=== PATIENT | female | born 1935 | race Caucasian/White ===

== ENCOUNTER 2020-12-02 14:06 | Outpatient (CLI) | payer MEDICARE, OTHER, SELFPAY ==
--- NOTE | 2020-12-02 14:15 | USCV_ITS ---
Tatiana Recio Age: 85 Gender: F : 1935 Exam Date: 12/02/2020 14:24 Ordering Phys: Dory Herrmann Technologist: Monet Hernandez Exam Location: [facility] [place]_ Indication: BLE PAIN RIGHT LEFT Brachial 148.00 mmHg Brachial 149.00 mmHg Pressure (mmHg) Waveform Pressure (mmHg) Waveform High Thigh 178.00 71.00 CHILD ADVOCATE 205.00 175.00 DPA 178.00 1.17 Ankle/Brachial Index 1.38 120.00 Pre-Exercise Toe Pressure 131.00 0.81 Pre-Exercise Toe/Brachial Index 0.88 FINDINGS RIGHT THIGH PRESSURE= >200 RIGHT CALF PRESSURE= >220 LEFT CALF PRESSURE= >220 Normal resting ABIs bilaterally Normal resting TBIs bilaterally PVR waveforms showing some blunting of the dicrotic notch Markedly elevated segmental pressures CONCLUSIONS No significant arterial obstruction, based on the above findings Features of arterial sclerosis Dr Amy Hoskins MD FACC (Electronically Signed) Final Date: 04 December 2020 18:49 S
== END 2020-12-02 14:07 | disposition home or self-care (01) ==
LOC: US 14:09
PROVIDERS: PCP Family Medicine; Visit Provider Nurse Practitioner Family
DX: I73.9 Peripheral vascular disease, unspecified (principal); M79.605 Pain in left leg; M79.604 Pain in right leg
CPT/HCPCS: 93923

== ENCOUNTER 2023-04-08 15:39 | Outpatient (CLI) | payer MEDICARE, OTHER, SELFPAY ==
[2023-04-08 15:51] LABS: Basophils % 0.4 %; Eosinophils % 0.7 %; Lymphocytes # 0.9 10^3/uL (0.8-4.8); Lymphocytes % 18.9 %; Mean Corpuscular HGB Conc 29.3 g/dL (30.0-36.0); Mean Corpuscular Hemoglobin 24.5 pg (28.0-34.0); Mean Corpuscular Volume 83.5 fl (81-99); Mean Platelet Volume 10.2 fL (7.4-10.4); Monocytes # 0.6 10^3/uL (0.2-0.9); Monocytes % 13.3 %; Neutrophils # 2.99 10^3/uL (1.8-7.7); Neutrophils % 66.5 %; Nucleated Red Blood Cells % 0 %; Platelet Count 430 10^3/cmm (130-400); Red Blood Count 2.49 10^6/uL (4.1-5.3); Red Cell Distribution Width 15.8 % (12.1-15.1); White Blood Count 4.5 10^3/uL (4.0-10.0)
[2023-04-08 15:56] LABS: Hematocrit 20.8 % (37.0-47.0); Hemoglobin 6.1 g/dL (11.5-15.3)
== END 2023-04-08 15:40 | disposition home or self-care (01) ==
LOC: LAB 15:40
PROVIDERS: PCP Family Medicine; Visit Provider Nurse Practitioner Family
DX: D50.9 Iron deficiency anemia, unspecified (principal)
CPT/HCPCS: 85025

== ENCOUNTER 2023-04-08 16:58 | Inpatient (IN) | payer MEDICARE, OTHER, SELFPAY ==
[2023-04-08] VITALS (12 sets, daily range): BP systolic 132–163; BP diastolic 64–78; PULSE 68–75; RESP 16–18; TEMP 36.6–37; O2SAT 93–100; BMI 17.1
--- NOTE | 2023-04-08 17:15 | W.ED.RECABL ---
HPI - Recheck/Abnormal Lab/Rx General: Chief Complaint: Recheck/Abnormal Lab/Rx Stated Complaint: anemia Time Seen by Provider: 04/08/23 17:15 History of Present Illness: 88-year-old lady with reported history of chronic anemia intermittent throughout her life presented to the emergency department for abnormal labs. Hemoglobin 6.1. She has noticed increased fatigue and generalized weakness without focality. 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 Denies other sources of bleeding. She is on anticoagulation. No other specific changes in health, exacerbating, or alleviating factors identified. Review of Systems General: Reports: 10 or more systems reviewed and unremarkable except in HPI and below PFSH ED PFSH: Medical History Atrial fibrillation CHF (congestive heart failure) HTN (hypertension) Family History Mother Heart disease Social History Smoking and tobacco status: never smoked Physical Exam Const: COMMON NORMALS: alert GENERAL APPEARANCE: cooperative and well developed HENMT: COMMON NORMALS: normocephalic and atraumatic HEAD & SCALP: normocephalic and atraumatic Eye: COMMON NORMALS: conjunctivae normal CONJUNCTIVA: Yes conjunctivae normal SCLERA: sclerae normal Neck/C-Spine: COMMON NORMALS: supple GENERAL: Yes trachea midline Resp: COMMON NORMALS: normal respiratory effort EFFORT & INSPECTION: Yes able to speak in complete sentences Cardio: COMMON NORMALS: regular rate and regular rhythm RATE: regular rate RHYTHM: regular rhythm GI: COMMON NORMALS: Soft to palpation PALPATION: Yes Soft to palpation and No Tenderness to palpation present (GI) RECTAL EXAM: heme negative stool and hemorrhoids Extremity: GENERAL: Yes normal exam except as noted and No edema Neuro: COMMON NORMALS: moves all extremities SENSORIUM/ORIENTATION: Yes alert and No Orientation impaired Psych: COMMON NORMALS: mental status grossly normal and Normal thought process present THOUGHT PROCESS: Normal thought process present Course Vital Signs: Vital signs: Vital Signs Temperature 98.0 F 04/10/23 11:23 Pulse Rate 67 04/10/23 11:23 Respiratory Rate 16 04/10/23 11:23 Blood Pressure 167/79 04/10/23 11:23 Pulse Oximetry 97 04/10/23 11:23 Oxygen Delivery Me thod Room Air 04/10/23 07:22 MDM - Recheck/Abnormal Lab/Rx Medical Decision Making 88-year-old lady presenting with generalized symptoms and abnormal labs. Exam as above. Vitally satisfactory. Labs notable for anemia, normal white blood cell count, mild thrombocytosis. Elevated creatinine without reported history of CKD. Trace hematuria. Normal renal ultrasound. Guaiac negative. Consented for transfusion and transfusion ordered. Additionally treated small fluid bolus. The results of ED evaluation were discussed with the patient including plan for admission due to requirement for level of care not available if discharged to prevent significant worsening/deterioration. Patient agreeable with plan. Discussed with hospitalist service who was agreeable to admit patient. Medical Records I reviewed the patient's medical records. Lab Data I reviewed the patient's lab results. 04/10/23 04:30 04/10/23 04:30 Radiology Impressions Renal Ultrasound 04/08/23 19:11 IMPRESSION: 1. No acute findings. 2. Postvoid urinary bladder residual of 67 cc. Laboratory Results WBC 4.1 10^3/uL (4.0-10.0) 04/08/23 17:50 RBC 2.65 10^6/uL (4.1-5.3) L 04/08/23 17:50 Hgb 6.5 g/dL (11.5-15.3) L* 04/08/23 17:50 Hct 22.4 % (37.0-47.0) L 04/08/23 17:50 MCV 84.5 fl (81-99) 04/08/23 17:50 MCH 24.5 pg (28.0-34.0) L 04/08/23 17:50 MCHC 29.0 g/dL (30.0-36.0) L 04/08/23 17:50 RDW 15.9 % (12.1-15.1) H 04/08/23 17:50 Plt Count 417 10^3/cmm (130-400) H 04/08/23 17:50 MPV 9.8 fL (7.4-10.4) 04/08/23 17:50 Neut % (Auto) 68.3 % 04/08/23 17:50 Lymph % (Auto) 18.7 % 04/08/23 17:50 White % (Auto) 11.8 % 04/08/23 17:50 Eos % (Auto) 0.5 % 04/08/23 17:50 Baso % (Auto) 0.5 % 04/08/23 17:50 Neut # (Auto) 2.78 10^3/uL (1.8-7.7) 04/08/23 17:50 Lymph # (Auto) 0.8 10^3/uL (0.8-4.8) 04/08/23 17:50 White # (Auto) 0.5 10^3/uL (0.2-0.9) 04/08/23 17:50 Eos # (Auto) 0.0 10^3/uL (0.0-0.8) 04/08/23 17:50 Baso # (Auto) 0.0 10^3/uL (0.0-0.1) 04/08/23 17:50 Nucleated RBC % (auto) 0 % 04/08/23 17:50 Nucleated RBCs # 0.0 /100WBC 04/08/23 17:50 PT 26.00 SECONDS (12.1-14.9) H 04/08/23 17:50 INR 2.28 (0.8-1.2) H 04/08/23 17:50 APTT 40.0 SECONDS (23.9-36.7) H 04/08/23 17:50 Sodium 139 mmol/L (136-145) 04/08/23 17:50 Potassium 4.5 mmol/L (3.5-5.1) 04/08/23 17:50 Chloride 101 mmol/L (98-107) 04/08/23 17:50 Carbon Dioxide 26 mmol/L (22-29) 04/08/23 17:50 Anion Gap 16.5 (5-19) 04/08/23 17:50 BUN 41 mg/dL (8-23) H 04/08/23 17:50 Creatinine 1.8 mg/dL (0.5-0.9) H 04/08/23 17:50 GFR Calculation Not Reportable 04/08/23 17:50 Glucose 98 mg/dL (65-115) 04/08/23 17:50 Calculated Osmolality 298 mOsm/kg (285-295) H 04/08/23 17:50 Calcium 9.1 mg/dL (8.5-10.5) 04/08/23 17:50 Urine Color Yellow (Yellow) 04/08/23 19:04 Urine Appearance Clear (CLEAR) 04/08/23 19:04 Urine pH 6 (5-7) 04/08/23 19:04 Ur Specific [place] 1.010 (1.005-1.030) 04/08/23 19:04 Urine Protein Neg (Negative) 04/08/23 19:04 Urine Glucose (UA) Norm (Normal) 04/08/23 19:04 Urine Ketones Negative (Negative) 04/08/23 19:04 Urine Blood 2+ (Negative) H 04/08/23 19:04 Urine Nitrate Negative (Negative) 04/08/23 19:04 Urine Bilirubin Neg (Negative) 04/08/23 19:04 Urine Urobilinogen Norm mg/dL (Negative) 04/08/23 19:04 Ur Leukocyte Esterase Negative (Negative) 04/08/23 19:04 Urine RBC 5-10 /hpf (0-2) H 04/08/23 19:04 Urine WBC 0-4 /hpf (0-5) H 04/08/23 19:04 Ur Squamous Epith Cells 0-4 /hpf (0-5) H 04/08/23 19:04 Amorphous Sediment Not Reportable 04/08/23 19:04 Urine Bacteria Not Reportable 04/08/23 19:04 Blood Type O Positive 04/08/23 17:50 Rho(D) Type Positive 04/08/23 17:50 Antibody Screen Negative 04/08/23 17:50 Crossmatch See Detail 04/08/23 17:50 Discharge Plan Discharge Patient Disposition: Admitted As Inpatient Admit Provider: Viridiana Rueda Clinical Impression: Symptomatic anemia, VICKI (acute kidney injury), Anticoagulated Condition: Stable Discharge Diet: Usual diet Discharge Activity: Resume usual activity Coding Level of Care Code 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
[2023-04-08 18:15] LABS: Basophils % 0.5 %; Eosinophils % 0.5 %; Hematocrit 22.4 % (37.0-47.0); Lymphocytes # 0.8 10^3/uL (0.8-4.8); Lymphocytes % 18.7 %; Mean Corpuscular Hemoglobin 24.5 pg (28.0-34.0); Mean Corpuscular Volume 84.5 fl (81-99); Mean Platelet Volume 9.8 fL (7.4-10.4); Monocytes # 0.5 10^3/uL (0.2-0.9); Monocytes % 11.8 %; Neutrophils # 2.78 10^3/uL (1.8-7.7); Neutrophils % 68.3 %; Nucleated Red Blood Cells % 0 %; Platelet Count 417 10^3/cmm (130-400); Red Blood Count 2.65 10^6/uL (4.1-5.3); Red Cell Distribution Width 15.9 % (12.1-15.1); White Blood Count 4.1 10^3/uL (4.0-10.0)
[2023-04-08 18:17] LABS: Hemoglobin 6.5 g/dL (11.5-15.3)
[2023-04-08 18:26] LABS: INR 2.28 (0.8-1.2)
[2023-04-08 18:34] LABS: Anion Gap 16.5 (5-19); Blood Urea Nitrogen 41 mg/dL (8-23); Calcium 9.1 mg/dL (8.5-10.5); Carbon Dioxide 26 mmol/L (22-29); Chloride 101 mmol/L (98-107); Glucose 98 mg/dL (65-115); Osmolality Calculated 298 mOsm/kg (285-295); Potassium 4.5 mmol/L (3.5-5.1); Sodium 139 mmol/L (136-145)
--- NOTE | 2023-04-08 19:11 | USR_ITS ---
PROCEDURE INFORMATION: Exam: US Retroperitoneal; Complete; Kidneys and Bladder Exam date and time: 04/08/2023 7:24 PM Age: 88 years old Clinical indication: Patient HX: Chronic anemia, elevated bun = 41, elevated creatinine = 1.8 TECHNIQUE: Imaging protocol: Real-time ultrasound of the retroperitoneum with image documentation. Complete exam focused on the kidneys and bladder. COMPARISON: No relevant prior studies available. FINDINGS: Right kidney: 10.1 x 4.1 x 4.4 cm. No mass, cyst, calculus, or hydronephrosis Left kidney: 9.5 x 3.6 x 3.9 cm. No mass, cyst, calculus, or hydronephrosis. Urinary bladder: The urinary bladder is of normal size and contour. Prevoid volume 125 cc. Postvoid volume 67 cc. US/US renal BI* [id number] IMPRESSION: 1. No acute findings. 2. Postvoid urinary bladder residual of 67 cc.
[2023-04-08 19:44] LABS: Add Urine Microscopic? YES; Bilirubin Urine Neg (Negative); Blood Urine 2+ (Negative); Glucose Urine UA Norm (Normal); Ketones Urine Negative (Negative); Leukocyte Esterase Urine Negative (Negative); Nitrate Urine Negative (Negative); Protein Urine Neg (Negative); Urine Appearance Clear (CLEAR); Urine Color Yellow (Yellow); Urobilinogen Urine Norm (Negative); pH Urine 6 (5-7)
[2023-04-08 19:45] LABS: Add Urine Culture? No; Squamous Epithelial Cell Urine 0-4 /hpf (0-5); WBC Urine 0-4 /hpf (0-5)
--- NOTE | 2023-04-08 19:50 | PC.NURSE ---
Ultrasound in room
--- NOTE | 2023-04-08 21:49 | ECG_ITS ---
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 Measurements Intervals [place] Rate: 68 P: 42 TN: 172 QRS: 39 QRSD: 98 T: 32 QT: 400 QTc: 428 Interpretive Statements SINUS RHYTHM LOW QRS VOLTAGE IN EXTREMITY LEADS [QRS DEFLECTION < 0.5 mV IN LIMB LEADS] ST DEVIATION AND MODERATE T-WAVE ABNORMALITY, CONSIDER LATERAL ISCHEMIA [-0.1+ mV T-WAVE IN I/aVL/V5/V6] Compared to ECG 03/23/2018 09:56:23 Low QRS voltage now present T-wave abnormality still present Possible ischemia still present Electronically Signed On 04-09-2023 8:43:25 CDT by Parviz Barrow M.D. [id number]
--- NOTE | 2023-04-08 21:52 | PM.HP ---
Providers/Chief Complaint Admitting Physician: Viridiana Rueda MD Chief Complaint: anemia History of Present Illness Tatiana Recio is a 88 year old female with h/o HTN, atrial fibrillation on eliquis, OA, was sent from the assisted living for abnormal labs, She was found to have a hemoglobin of 6.5. She reports feeling tired but no new complaints likje chest pain, SOB, cough, fever, bowel or urinary complaints. As per the family, her usual hemoglobin is around 10. never had similar complaints in the past. She further reports having diarrhea 1day prior to admission which resolved with antidiarrheal medication. No h/o active bleeding noted. In ER she was hemoccult negative. Review of Systems Const: Reports: fatigue; Denies: fever(s), chills, change in weight or diaphoresis Eyes: Denies: change in vision or eye redness ENMT: Denies: throat pain, odynophagia, mouth pain or epistaxis Card: Reports: other (elevated BP); Denies: chest pain, palpitations, irregular heart rhythm, syncope, pre-syncope or leg pain with exertion Resp: Denies: dyspnea, productive cough or wheezing GI: Denies: nausea, vomiting, hematemesis, hematochezia or melena : Denies: hematuria Musc: Denies: extremity swelling or joint pain Skin/Breast: Reports: non-healing lesions; Denies: rash, pruritus, erythema or new lesions Neuro: Reports: dizziness; Denies: numbness in extremities, weakness in extremities, sensory changes, frequent falls, Slurred speech present or difficulty communicating thoughts Psych: Denies: anxiety, depression, irritability, suicidal ideation or homicidal ideation Endo: Denies: polyuria, polydipsia or excessive sweating [place]/Lymph: Denies: easy bruising or easy bleeding Medications/Allergies Home Medications Medication Instructions Recorded Confirmed Last Taken Type acetaminophen 650 mg 650 mg PO Q12H PRN fever or pain 02/16/20 12/19/20 Unknown Rx tablet,extended release (Tylenol 8 30 days #30 tabs Hour) apixaban 2.5 mg tablet (Eliquis) 2.5 mg PO BID 90 days #180 tabs 02/16/20 12/19/20 Unknown Rx ergocalciferol (vitamin D2) 1,250 50,000 unit PO DAILY 30 days #30 02/16/20 12/19/20 Unknown Rx mcg (50,000 unit) capsule caps fluticasone propionate 50 1 spray intranasal DAILY 30 days 02/16/20 12/19/20 Unknown Rx mcg/actuation nasal #18.2 mL spray,suspension (Flonase Allergy Relief) isosorbide mononitrate 20 mg tablet 20 mg PO DAILY 90 days #90 tabs 02/16/20 12/19/20 Unknown Rx levothyroxine 112 mcg capsule 112 mcg PO DAILY 30 days #30 caps 02/16/20 12/19/20 Unknown Rx lorazepam 0.5 mg tablet 0.5 mg PO DAILY PRN anxiety 30 02/16/20 12/19/20 Unknown Rx days #30 tabs pantoprazole 40 mg tablet,delayed 40 mg PO DAILY 90 days #90 tabs 02/16/20 12/19/20 Unknown Rx release (Protonix) tramadol 50 mg tablet 50 mg PO DAILY PRN pain 30 days 02/16/20 12/19/20 Unknown Rx #30 tabs furosemide 40 mg tablet 40 mg PO DAILY #90 tabs 12/24/20 12/24/20 Unknown Rx metoprolol tartrate 25 mg tablet 12.5 mg PO DAILY #45 tabs 07/28/21 Unknown Rx amiodarone 200 mg tablet 200 mg PO DAILY #90 tabs 11/19/21 Unknown Rx losartan 100 1 tab PO DAILY #90 tabs 11/19/21 Unknown Rx mg-hydrochlorothiazide 12.5 mg tablet amlodipine 5 mg tablet 5 mg PO .HS #30 tabs 01/05/22 Unknown Rx potassium chloride 20 mEq 20 meq PO DAILY #30 tabs 01/26/22 Unknown Rx tablet,extended release Allergies Allergy/AdvReac Type Severity Reaction Status Date / Time No Known Allergies Allergy Verified 04/08/23 17:13 PFSH Acute PFSH: Medical History Atrial fibrillation CHF (congestive heart failure) HTN (hypertension) Family History Mother Heart disease Social History Smoking and tobacco status: never smoked Vitals/I&O/Wt Last Vital Signs Temp 98.4 F 04/08/23 21:33 Pulse 72 04/08/23 21:33 Resp 16 04/08/23 21:33 BP 138/69 04/08/23 21:33 Pulse Ox 93 04/08/23 21:33 O2 Del Method Room Air 04/08/23 21:02 04/08/23 04/08/23 04/08/23 06:59 14:59 22:59 Intake Total 0 / 0 Balance 0 / 0 Weight last 48 hrs Weight 48.081 kg Physical Exam Narrative: AAox3, comfortable but tired. chest clear to ascultation b/l CVS NAD Abd soft NTND bowel sounds normal Ext no edema Data 04/08/23 17:50 04/08/23 17:50 US: Radiologist's impression: renal USG-normal A&P Assessment and plan (1) Symptomatic anemia: (2) VICKI (acute kidney injury): (3) Anticoagulated: Plan Symptomatic anemiawith Hb 6.5 likely iron deficiency patient to receive 2u PRBC recheck CBC in am will start PO ferrous sulphate 325mg daily. VICKI- likely secondary to dehydration due to diarrhea which resolved. will give IV flids normal saline at 100ml/hr. Hold Po lasix for now. repeat UA stat. Coagulopathy-- unknown etiology. recheck coags in am Resume home medications DVT ppx with eliquis cardiac diet Full code. Attestations Medical Necessity Statement*: need blood transfusion for severe anemia and IV flyids for VICKI Time Spent in Patient Care: 30min Coding Level of Care Code 97248 Diagnoses Symptomatic anemia D64.9 VICKI (acute kidney injury) N17.9 Anticoagulated Z79.01 Time Spent (min) 30
[2023-04-08] MEDS: TRAMadol 50 mg Tablet PO (22:51)
[2023-04-08] MEDS: amlodipine 5 mg Tablet PO (22:52)
[2023-04-08 23:25] LABS: Charge for UA Resulting for Rev
[2023-04-08 23:33] LABS: Glucose Urine UA Norm (Normal); Ketones Urine Negative (Negative); Protein Urine Neg (Negative); Urine Appearance Clear (CLEAR); Urine Color Yellow (Yellow); pH Urine 8 (5-7)
[2023-04-08 23:34] LABS: Add Urine Microscopic? YES; Bilirubin Urine Neg (Negative); Blood Urine Trace (Negative); Leukocyte Esterase Urine Negative (Negative); Nitrate Urine Negative (Negative); Sulfosalicylic Acid Urine Negative (Negative); Urobilinogen Urine Neg (Negative)
[2023-04-09] VITALS (13 sets, daily range): BP systolic 106–149; BP diastolic 54–73; PULSE 60–76; RESP 16–18; TEMP 36.5–37; O2SAT 94–98
[2023-04-09] MEDS: acetaminophen 325 mg Tablet 650 MG PO (02:20)
[2023-04-09] MEDS: LORazepam 0.5 mg Tablet PO (02:21)
[2023-04-09] MEDS: sodium chloride 0.9% 1,000 ML 75 ML IV (02:32)
[2023-04-09 05:06] LABS: Basophils % 0.3 %; Eosinophils % 1.1 %; Hemoglobin 8.7 g/dL (11.5-15.3); Lymphocytes # 0.7 10^3/uL (0.8-4.8); Lymphocytes % 20.7 %; Mean Corpuscular Hemoglobin 25.3 pg (28.0-34.0); Mean Corpuscular Volume 84.3 fl (81-99); Mean Platelet Volume 10.1 fL (7.4-10.4); Monocytes # 0.4 10^3/uL (0.2-0.9); Monocytes % 10.1 %; Neutrophils # 2.41 10^3/uL (1.8-7.7); Neutrophils % 67.5 %; Nucleated Red Blood Cells % 0 %; Platelet Count 367 10^3/cmm (130-400); Red Blood Count 3.44 10^6/uL (4.1-5.3); Red Cell Distribution Width 14.9 % (12.1-15.1); White Blood Count 3.6 10^3/uL (4.0-10.0)
[2023-04-09 05:18] LABS: INR 1.33 (0.8-1.2)
[2023-04-09 05:26] LABS: Alanine Aminotransferase < 5 U/L (0-33); Albumin Level 3.6 g/dL (3.5-5.2); Alkaline Phosphatase 99 U/L (35-105); Anion Gap 15.7 (5-19); Aspartate Amino Transferase 16 U/L (0-32); Blood Urea Nitrogen 33 mg/dL (8-23); Calcium 9.5 mg/dL (8.5-10.5); Carbon Dioxide 24 mmol/L (22-29); Chloride 100 mmol/L (98-107); Globulin 2.7 g/dL (1.3-4.6); Glucose 78 mg/dL (65-115); Osmolality Calculated 288 mOsm/kg (285-295); Potassium 3.7 mmol/L (3.5-5.1); Sodium 136 mmol/L (136-145); Total Bilirubin 1.2 mg/dL (0.15-1.2); Total Protein 6.3 g/dL (6.6-8.7)
[2023-04-09] MEDS: levothyroxine 112 mcg Tablet PO (08:29)
[2023-04-09] MEDS: isosorbide mononitrate 20 mg Tablet PO (08:29)
[2023-04-09] MEDS: potassium chloride ER 20 mEq Tablet PO (08:29)
[2023-04-09] MEDS: amiodarone 200 mg Tablet PO (08:29)
[2023-04-09] MEDS: apixaban 5 mg Tablet 2.5 MG PO (08:30)
[2023-04-09] MEDS: hydroCHLOROthiazide 25 mg Tablet 12.5 MG PO (08:30)
[2023-04-09] MEDS: metoprolol tartrate 25 mg Tablet 12.5 MG PO (08:30)
[2023-04-09] MEDS: pantoprazole DR 40 mg Tablet PO (08:30)
[2023-04-09] MEDS: fluticasone nasal spray 16gm Btl 1 SPRAY INTRANASAL (08:32)
[2023-04-09] MEDS: losartan 50 mg Tablet 100 MG PO (08:41)
--- NOTE | 2023-04-09 09:47 | PC.PHAR ---
CALLED PTS FACILITY AT 8 AM AND 9:15 AM FOR MED LIST NO RESPONSE YET
--- NOTE | 2023-04-09 10:35 | P.PN_ITS ---
Subjective Subjective: Posttransfusion hemoglobin at 8.7. Patient complains of some nausea. No other interim complaints. She states that she believes her Eliquis was recently changed to a different medication due to cost issues. This is confirmed with assisted-living records, she is in fact on Xarelto,. Her CODE STATUS is also DNR Medications: Reviewed: Yes Medication Review Details: Medication list from [facility] Albuterol inhaler as needed Amiodarone 100 mg p.o. every morning Amlodipine 5 mg daily Cetirizine 5 mg p.o. daily Isosorbide dinitrate 30 mg in the afternoon Lasix 20 mg p.o. once daily for edema Levothyroxine 112 mcg daily Lorazepam 0.5 mg as needed at bedtime Losartan/HCTZ/5012.51 tab daily MiraLAX every 12 hours as needed Naproxen every 12 hours as needed Protonix 40 mg p.o. daily Potassium 10 mEq 2 tabs a day Tramadol 50 mg as needed at bedtime and every 8 hours as needed Xarelto 10 mg daily Zofran 4 mg every 8 hours as needed Vitals/I&O/Wt Last Vital Signs Temp 98.2 F 04/09/23 08:00 Pulse 66 04/09/23 08:00 Resp 17 04/09/23 08:00 BP 134/65 04/09/23 08:41 Pulse Ox 95 04/09/23 08:00 O2 Del Method Room Air 04/08/23 23:59 04/08/23 04/09/23 04/09/23 22:59 06:59 14:59 Intake Total 0 / 0 870 / 870 838.75 / 838.75 Balance 0 / 0 870 / 870 838.75 / 838.75 Weight last 48 hrs Weight 48.081 kg Physical Exam Narrative: General: No acute distress, AO x3 HEENT: PERRLA, pupils bilaterally equal and reactive, pallors not present Chest: Normal vesicular breath sounds, no added sounds, equal good air entry bilaterally CVS: S1-S2 regular, no murmurs, no tachycardia, no gallops, no rubs Abdomen: Soft, nontender, no organomegaly, bowel sounds present Neuro: No focal deficits, no facial deformity, AO x3, power 5/5 in all limbs Extremities: Severe right knee osteoarthritis with swelling. Data 04/09/23 04:13 06/16/23 04:13 A&P Assessment and plan (1) Symptomatic anemia: Patient presenting to the hospital with symptomatic anemia as low as 6.5. She is status post packed red blood cell transfusion following which hemoglobin this morning is improved to 8.7. Patient reports having had a colonoscopy within the last 3 years which was normal. I am unable to find a direct record of this colonoscopy at this point. She denies any recent hematemesis or melanotic stools. Patient is currently on Xarelto for stroke prophylaxis with A-fib. We will be discontinuing all anticoagulation going forward. We will plan to monitor her H&H again in the evening hours to ensure that it is a stable. Recommend to get a colonoscopy as an outpatient if H&H remained stable. Defer decision to resume anticoagulation post colonoscopy to her primary care physician. Review of her medication list from [facility] shows patient is also on naproxen for osteoarthritis pain management. Will discontinue naproxen in case contributing to gastritis or GI bleeding. Okay to continue tramadol for pain management. (2) VICKI (acute kidney injury): Creatinine is improving today from 1.8-1.3 Discontinue IV fluids Encourage p.o. intake. Hold Lasix and losartan (3) CHF (congestive heart failure): History of CHF Holding Lasix currently. Additionally hold losartan for now due to VICKI Qualifiers: Heart failure type: diastolic Heart failure chronicity: chronic Qualified Code(s): I50.32 - Chronic diastolic (congestive) heart failure (4) HTN (hypertension): Continue amlodipine, Imdur (5) Atrial fibrillation: Continue amiodarone Patient is currently rate controlled. Discontinue Xarelto as above Qualifiers: Atrial fibrillation type: persistent (not longstanding) Qualified Code(s): I48.19 - Other persistent atrial fibrillation Attestations Medical Necessity Statement*: Recheck H&H in 12 hours and then again with a.m. labs. If stable, will likely discharge patient in the upcoming 24 hours with recommendations for outpatient colonoscopy. Coding Level of Care Code Acute Code for Chg Fwd Moderate MDM includes number and complexity of problems actively addressed during encounter, amount and/or complexity of data reviewed/ordered and described risk of complication, morbidity or mortality of management as documented Diagnoses Symptomatic anemia D64.9 VICKI (acute kidney injury) N17.9 CHF (congestive heart failure) I50.32 Heart failure type: diastolic Heart failure chronicity: chronic HTN (hypertension) I10 Atrial fibrillation I48.19 Atrial fibrillation type: persistent (not longstanding)
[2023-04-09 10:46] LABS: Ferritin 27 ng/mL (15-150); Iron 85 ug/dL (37-145); Percent Saturation 28.1 % (20-50); Total Iron Binding Capacity 302 mcg/dl; Unsaturated Iron Binding 217 ug/dL (112-347)
[2023-04-09 11:01] LABS: Folate Level 12.5 ng/mL (4.8-37.3)
[2023-04-09 11:02] LABS: Vitamin B12 313 pg/mL (232-1245)
[2023-04-09 17:30] LABS: Hematocrit 29.6 % (37.0-47.0); Hemoglobin 8.8 g/dL (11.5-15.3)
[2023-04-09] MEDS: TRAMadol 50 mg Tablet PO (19:52)
[2023-04-09] MEDS: amlodipine 5 mg Tablet PO (20:11)
[2023-04-10] VITALS: BP 130/60; PULSE 60; RESP 18; TEMP 37; O2SAT 95
[2023-04-10] MEDS: acetaminophen 325 mg Tablet 650 MG PO (01:13)
[2023-04-10] MEDS: LORazepam 0.5 mg Tablet PO (01:13)
[2023-04-10 04:50] VITALS: BP 120/60; PULSE 62; RESP 19; TEMP 37.1; O2SAT 96
[2023-04-10 05:16] LABS: Basophils % 0.5 %; Eosinophils # 0.1 10^3/uL (0.0-0.8); Eosinophils % 1.1 %; Hematocrit 32.5 % (37.0-47.0); Hemoglobin 9.9 g/dL (11.5-15.3); Lymphocytes # 0.9 10^3/uL (0.8-4.8); Lymphocytes % 20.7 %; Mean Corpuscular HGB Conc 30.5 g/dL (30.0-36.0); Mean Corpuscular Hemoglobin 26.1 pg (28.0-34.0); Mean Corpuscular Volume 85.5 fl (81-99); Mean Platelet Volume 9.7 fL (7.4-10.4); Monocytes # 0.5 10^3/uL (0.2-0.9); Monocytes % 11.4 %; Neutrophils % 65.8 %; Nucleated Red Blood Cells % 0 %; Platelet Count 385 10^3/cmm (130-400); Red Cell Distribution Width 15.5 % (12.1-15.1); White Blood Count 4.4 10^3/uL (4.0-10.0)
[2023-04-10 05:35] LABS: Alanine Aminotransferase 6 U/L (0-33); Albumin Level 3.4 g/dL (3.5-5.2); Alkaline Phosphatase 104 U/L (35-105); Anion Gap 17.6 (5-19); Aspartate Amino Transferase 16 U/L (0-32); Blood Urea Nitrogen 20 mg/dL (8-23); Calcium 9.7 mg/dL (8.5-10.5); Carbon Dioxide 21 mmol/L (22-29); Chloride 101 mmol/L (98-107); Globulin 2.9 g/dL (1.3-4.6); Glucose 82 mg/dL (65-115); Osmolality Calculated 284 mOsm/kg (285-295); Potassium 3.6 mmol/L (3.5-5.1); Sodium 136 mmol/L (136-145); Total Bilirubin 0.8 mg/dL (0.15-1.2); Total Protein 6.3 g/dL (6.6-8.7)
[2023-04-10 07:22] VITALS: BP 167/79; PULSE 67; RESP 16; TEMP 36.7; O2SAT 97
--- NOTE | 2023-04-10 07:34 | PC.PHAR ---
Addendum entered by Jeannette Benjamin 04/10/23 08:11: medications entered are from pts [facility] mar faxed by maryjo zhong from [facility] Original Note: pt is from [facility] [phone]-per maryjo to fax med list
[2023-04-10] MEDS: hydroCHLOROthiazide 25 mg Tablet 12.5 MG PO (08:30)
[2023-04-10] MEDS: amiodarone 200 mg Tablet 100 MG PO (08:30)
[2023-04-10] MEDS: levothyroxine 112 mcg Tablet PO (08:30)
[2023-04-10] MEDS: isosorbide mononitrate 20 mg Tablet PO (08:30)
[2023-04-10] MEDS: pantoprazole DR 40 mg Tablet PO (08:30)
[2023-04-10] MEDS: potassium chloride ER 20 mEq Tablet PO (08:31)
--- NOTE | 2023-04-10 09:56 | P.DS_ITS ---
Discharge Providers Date of Admission: 04/08/23 19:30 Date of Discharge: April 10, 2023 Attending Provider at Admission: Viridiana Rueda MD Attending Provider at Discharge: Maryann Villegas MD Diagnoses at Discharge Discharge Diagnosis (1) Symptomatic anemia: Status: Acute (2) VICKI (acute kidney injury): Status: Acute (3) CHF (congestive heart failure): Status: Acute Qualifiers: Heart failure type: diastolic Heart failure chronicity: chronic Qualified Code(s): I50.32 - Chronic diastolic (congestive) heart failure (4) HTN (hypertension): Status: Acute (5) Atrial fibrillation: Status: Acute Qualifiers: Atrial fibrillation type: persistent (not longstanding) Qualified Code(s): I48.19 - Other persistent atrial fibrillation Reason for Visit Reason for Visit: anemia Brief History: Tatiana Recio is a 88 year old female with h/o HTN, atrial fibrillation on Xarelto, OA, lives in assisted living, She had been experiencing generalized fatigue and malaise, labs were checked and she was noted to have a hemoglobin of 6.5. She reports feeling tired but no new complaints likje chest pain, SOB, cough, fever, bowel or urinary complaints. No abdominal pain. As per the family, her usual hemoglobin is around 10. never had similar complaints in the past. She further reports having diarrhea 1day prior to admission which resolved with antidiarrheal medication. There was no melena or hematemesis. In ER she was hemoccult negative. She received transfusion with 1 packed red blood cell following which her hemoglobin has improved to 9.9 at the time of discharge. She has no current active bleeding. Due to symptomatic anemia at 6.5, Xarelto was held. An extensive risk-benefit assessment was performed with the family. While off of anticoagulation there is a potential risk of stroke with her A-fib, given anemia at 6.5 and the possibility of GI bleed not completely excluded it would be unsafe to continue anticoagulation at this time. 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 Patient also had an VICKI of 1.8 of admission at admission, creatinine now improved to 0.9 with hydration at the time of discharge. Losartan has been held at the time of discharge and Norvasc increased to 10 mg daily from 5 mg daily currently. Physical Exam Narrative: General: No acute distress, AO x3 HEENT: PERRLA, pupils bilaterally equal and reactive, pallors not present Chest: Normal vesicular breath sounds, no added sounds, equal good air entry bilaterally CVS: S1-S2 regular, no murmurs, no tachycardia, no gallops, no rubs Abdomen: Soft, nontender, no organomegaly, bowel sounds present Neuro: No focal deficits, no facial deformity, AO x3, power 5/5 in all limbs Discharge Data Studies Completed and Pending Completed Studies During Hospitalization Category Date Time Status US renal BI* [id number] Stat Ultrasound 04/08/23 19:11 Completed Pending at discharge Category Date Time Status Occult Blood Stool [Immunochemical Fecal OCB] Stat Lab 04/08/23 19:17 Uncollected Radiology Impressions Renal Ultrasound 04/08/23 19:11 IMPRESSION: 1. No acute findings. 2. Postvoid urinary bladder residual of 67 cc. Laboratory Results WBC 4.4 10^3/uL (4.0-10.0) 04/10/23 04:30 RBC 3.80 10^6/uL (4.1-5.3) L 04/10/23 04:30 Hgb 9.9 g/dL (11.5-15.3) L 04/10/23 04:30 Hct 32.5 % (37.0-47.0) L 04/10/23 04:30 MCV 85.5 fl (81-99) 04/10/23 04:30 MCH 26.1 pg (28.0-34.0) L 04/10/23 04:30 MCHC 30.5 g/dL (30.0-36.0) 04/10/23 04:30 RDW 15.5 % (12.1-15.1) H 04/10/23 04:30 Plt Count 385 10^3/cmm (130-400) 04/10/23 04:30 MPV 9.7 fL (7.4-10.4) 04/10/23 04:30 Neut % (Auto) 65.8 % 04/10/23 04:30 Lymph % (Auto) 20.7 % 04/10/23 04:30 [place] % (Auto) 11.4 % 04/10/23 04:30 Eos % (Auto) 1.1 % 04/10/23 04:30 Baso % (Auto) 0.5 % 04/10/23 04:30 Neut # (Auto) 2.90 10^3/uL (1.8-7.7) 04/10/23 04:30 Lymph # (Auto) 0.9 10^3/uL (0.8-4.8) 04/10/23 04:30 [place] # (Auto) 0.5 10^3/uL (0.2-0.9) 04/10/23 04:30 Eos # (Auto) 0.1 10^3/uL (0.0-0.8) 04/10/23 04:30 Baso # (Auto) 0.0 10^3/uL (0.0-0.1) 04/10/23 04:30 Nucleated RBC % (auto) 0 % 04/10/23 04:30 Nucleated RBCs # 0.0 /100WBC 04/10/23 04:30 PT 17.00 SECONDS (12.1-14.9) H D 04/09/23 04:13 INR 1.33 (0.8-1.2) H 04/09/23 04:13 APTT 38.0 SECONDS (23.9-36.7) H 04/09/23 04:13 Sodium 136 mmol/L (136-145) 04/10/23 04:30 Potassium 3.6 mmol/L (3.5-5.1) 04/10/23 04:30 Chloride 101 mmol/L (98-107) 04/10/23 04:30 Carbon Dioxide 21 mmol/L (22-29) L 04/10/23 04:30 Anion Gap 17.6 (5-19) 04/10/23 04:30 BUN 20 mg/dL (8-23) 04/10/23 04:30 Creatinine 0.9 mg/dL (0.5-0.9) 04/10/23 04:30 GFR Calculation Not Reportable 04/10/23 04:30 Glucose 82 mg/dL (65-115) 04/10/23 04:30 Calculated Osmolality 284 mOsm/kg (285-295) L 04/10/23 04:30 Calcium 9.7 mg/dL (8.5-10.5) 04/10/23 04:30 Magnesium 2.0 mg/dL (1.7-2.3) 04/09/23 04:13 Iron 85 ug/dL (37-145) 04/09/23 04:13 TIBC 302 mcg/dl 04/09/23 04:13 % Saturation 28.1 % (20-50) 04/09/23 04:13 Unsat Iron Binding 217 ug/dL (112-347) 04/09/23 04:13 Ferritin 27 ng/mL (15-150) 04/09/23 04:13 Total Bilirubin 0.8 mg/dL (0.15-1.2) 04/10/23 04:30 AST 16 U/L (0-32) 04/10/23 04:30 ALT 6 U/L (0-33) 04/10/23 04:30 Alkaline Phosphatase 104 U/L (35-105) 04/10/23 04:30 Total Protein 6.3 g/dL (6.6-8.7) L 04/10/23 04:30 Albumin 3.4 g/dL (3.5-5.2) L 04/10/23 04:30 Globulin 2.9 g/dL (1.3-4.6) 04/10/23 04:30 Vitamin B12 313 pg/mL (232-1245) 04/09/23 04:13 Folate 12.5 ng/mL (4.8-37.3) 04/09/23 04:13 Urine Color Yellow (Yellow) 04/08/23 22:55 Urine Appearance Clear (CLEAR) 04/08/23 22:55 Urine pH 8 (5-7) H 04/08/23 22:55 Ur Specific [place] 1.010 (1.005-1.030) 04/08/23 22:55 Urine Protein Neg (Negative) 04/08/23 22:55 Urine Glucose (UA) Norm (Normal) 04/08/23 22:55 Urine Ketones Negative (Negative) 04/08/23 22:55 Urine Blood Trace (Negative) H 04/08/23 22:55 Urine Nitrate Negative (Negative) 04/08/23 22:55 Urine Bilirubin Neg (Negative) 04/08/23 22:55 Prot Sulfosalicylic Acd Negative (Negative) 04/08/23 22:55 Urine Urobilinogen Neg mg/dL (Negative) 04/08/23 22:55 Ur Leukocyte Esterase Negative (Negative) 04/08/23 22:55 Urine RBC 5-10 /hpf (0-2) H 04/08/23 19:04 Urine WBC 0-4 /hpf (0-5) H 04/08/23 19:04 Ur Squamous Epith Cells 0-4 /hpf (0-5) H 04/08/23 19:04 Amorphous Sediment Not Reportable 04/08/23 19:04 Urine Bacteria Not Reportable 04/08/23 19:04 Blood Type O Positive 04/08/23 17:50 Rho(D) Type Positive 04/08/23 17:50 Antibody Screen Negative 04/08/23 17:50 Crossmatch See Detail 04/08/23 17:50 Vitals Last Vital Signs Temp 98.0 F 04/10/23 07:22 Pulse 67 04/10/23 07:22 Resp 16 04/10/23 07:22 BP 167/79 04/10/23 07:22 Pulse Ox 97 04/10/23 07:22 O2 Del Method Room Air 04/10/23 07:22 Discharge Plan Discharge Patient Disposition: Home Condition: Stable Prescriptions: Continued pantoprazole [Protonix] 40 mg tablet,delayed release (DR/EC) 40 mg PO DAILY 90 Days Qty: 90 3RF cetirizine 5 mg Tablet 5 mg PO DAILY potassium chloride 10 mEq tablet extended release 20 meq PO DAILY isosorbide dinitrate 30 mg tablet 30 mg PO .IN THE AFTERNOON furosemide 20 mg tablet 20 mg PO DAILY amiodarone 100 mg tablet 100 mg PO QAM ondansetron HCl 4 mg tablet 4 mg PO Q8H PRN (Reason: Nausea And Vomiting) tramadol 50 mg tablet 50 mg PO Q8H PRN (Reason: Pain) albuterol sulfate 90 mcg/actuation Aero Powdr Breath Act W/Sensor 2 inh INHALATION Q6H PRN (Reason: Shortness Of Breath Or Wheezing) Miralax 17 gram Powder In Packet 17 g PO Q12H PRN (Reason: Constipation) tramadol 50 mg tablet 50 mg PO BEDTIME lorazepam 0.5 mg tablet 0.5 mg PO BEDTIME Flonase 50 mcg/actuation [place],Suspension 2 spray INTRANASAL DAILY Rx Instructions: administer into each nostril levothyroxine 112 mcg tablet 112 mcg PO QAM Changed amlodipine 5 mg tablet 10 mg PO BEDTIME Qty: 30 0RF Rx Instructions: hold if sbp below 100 or dbp below 60 Discontinued Xarelto 10 mg tablet 10 mg PO QAM naproxen sodium 220 mg Tablet 220 mg PO Q12H PRN (Reason: Pain) losartan-hydrochlorothiazide 50-12.5 mg tablet 1 tab PO QAM Discharge Orders: Discharge Order (Routine); Ordered 04/10/23 Ordered By: Maryann Villegas Discharge Diet: Usual diet Discharge Activity: Resume usual activity Patient Instructions: Opioid Safety Discharge Attestations Time Spent in Discharge Care*: greater than 30 min Quality Metrics Clinical Quality Measures [ No reported AMI, CVA or VTE this stay] Coding Level of Care Code Acute Code for Chg Fwd Diagnoses Symptomatic anemia D64.9 VICKI (acute kidney injury) N17.9 CHF (congestive heart failure) I50.32 Heart failure type: diastolic Heart failure chronicity: chronic HTN (hypertension) I10 Atrial fibrillation I48.19 Atrial fibrillation type: persistent (not longstanding)
[2023-04-10 11:23] VITALS: BP 167/79; PULSE 67; RESP 16; TEMP 36.7; O2SAT 97
--- NOTE | 2023-04-10 11:24 | PC.NURSE ---
IV removed intact. Patient tolerated well. Reviewed patient's discharge instructions with patient and daughter. Patient and daughter verbalized understanding to the call she will receive from Dr. Duran office and to hold her amlodipine for a top blood pressure of less than a 100 or a bottom blood pressure of less then 60. Patient states, I live at senior housing and they take care of all my medications. Instructed patient's daughter to give the discharge papers to the nurses where she lives. Patient and daughter verbalized understanding.
== END 2023-04-10 11:20 | disposition home or self-care (01) | DRG 812 ==
LOC: ER 19:29 → MEDSURG 20:03
PROVIDERS: Admitting Provider Internal Medicine; Emergency Provider Emergency Medicine; Visit Provider Student in an Organized Health Care Education/Training Program
DX: D50.9 Iron deficiency anemia, unspecified (principal); I48.19 Other persistent atrial fibrillation; I50.32 Chronic diastolic (congestive) heart failure; N17.9 Acute kidney failure, unspecified; D68.9 Coagulation defect, unspecified; Z79.01 Long term (current) use of anticoagulants; I11.0 Hypertensive heart disease with heart failure; M19.90 Unspecified osteoarthritis, unspecified site; Z66 Do not resuscitate; E86.0 Dehydration
CPT/HCPCS: 36415; 36430; 76770; 80048; 80053; 81001; 81003; 82607; 82728; 82746; 83540; 83550; 83735; 85014; 85018; 85025; 85610; 85730; 86850; 86900; 86920; 93005; 99222; 99285; J7030; P9016

== ENCOUNTER → 2023-08-12 10:29 | Outpatient (BNVA) | payer MEDICARE, OTHER, SELFPAY | PROVIDERS: Visit Provider Nurse Practitioner | DX: M17.11 Unilateral primary osteoarthritis, right knee; G89.29 Other chronic pain; M25.561 Pain in right knee | CPT/HCPCS: 73562; 80053; 81001; 85025; 99204 ==

== ENCOUNTER → 2023-09-01 10:48 | Outpatient (BNVA) | payer MEDICARE, OTHER, SELFPAY | PROVIDERS: Visit Provider Family Medicine | DX: Z01.818 Encounter for other preprocedural examination (principal); R30.0 Dysuria | CPT/HCPCS: 81000; 87086 ==

== ENCOUNTER 2023-09-02 15:40 | Outpatient (CLI) | payer MEDICARE, OTHER, SELFPAY ==
--- NOTE | 2023-09-02 16:00 | CT_ITS ---
WS: [id number] CT RIGHT knee, noncontrast HISTORY: Planning for RT TKA TECHNIQUE: Protocol for ADAM total knee replacement has been obtained. This includes axial imaging th rough the RIGHT hip, RIGHT knee and RIGHT ankle. DLP: 981.01 mGy.cm COMPARISON: 08/12/2023 Pelvis: Osteopenia. Narrowing of the hip joint and osteophytic ridging. Hip joints are both narrowed. More significant osteophytic ridging around the RIGHT hip. Constipation RIGHT knee: No destructive bone lesions. Mild subluxation laterally of the patella. Advanced degenera tive changes at the medial and lateral joint spaces. Subchondral cystic changes and loss of the eduardo l cortex. Small suprapatellar joint effusion. Arterial atherosclerosis. RIGHT ankle: Negative. IMPRESSION: CT imaging provided for ADAM robotic total knee replacement.
== END 2023-09-02 15:41 | disposition home or self-care (01) ==
LOC: RAD 15:40
PROVIDERS: Visit Provider Nurse Practitioner
DX: M17.11 Unilateral primary osteoarthritis, right knee (principal); G89.29 Other chronic pain
CPT/HCPCS: 73700

== ENCOUNTER 2023-09-14 11:23 | Inpatient (IN) | payer MEDICARE, OTHER, SELFPAY ==
[2023-09-14] VITALS (16 sets, daily range): BP systolic 104–158; BP diastolic 62–102; PULSE 57–76; RESP 15–18; TEMP 36.1–37.1; O2SAT 93–97; BMI 15.5
[2023-09-14] MEDS: acetaminophen 1,000 MG/100 ML PIGGYBACK 400 MG IV ×2 (06:29→16:30)
[2023-09-14] MEDS: CELEcoxib 200 mg Capsule 400 MG PO (06:29)
[2023-09-14] MEDS: gabapentin 300 mg Capsule PO (06:29)
[2023-09-14] MEDS: sodium chloride 0.9% 1,000 ML 30 ML IV (06:44)
--- NOTE | 2023-09-14 06:58 | P.HPUD_ITS ---
Surgery/Procedure H&P Update DATE OF PROCEDURE: September 14, 2023 DATE H&P PERFORMED: 08/31/23 H&P UPDATE INFORMATION: I have reviewed H&P completed within last 30 days, I have examined patient prior to procedure, No changes to prior documentation and H&P is in [facility] [place] on date indicated PREOP DIAGNOSIS: Primary osteoarthritis right knee PLANNED PROCEDURE: Operation Date: 09/14/23 07:00 Proposed Procedures p David Robot Total Knee Arthroplasty(Right) - Laura Harper MD Related Problem List Diagnoses (1) Osteoarthritis of right knee: (2) Valgus deformity, not elsewhere classified, right knee:
[2023-09-14 06:59] LABS: Basophils % 0.5 %; Eosinophils # 0.1 10^3/uL (0.0-0.8); Eosinophils % 0.8 %; Hematocrit 32.2 % (36-47); Lymphocytes # 1.1 10^3/uL (0.8-4.8); Lymphocytes % 17.3 %; Mean Corpuscular HGB Conc 31.7 g/dL (30-55); Mean Corpuscular Hemoglobin 29.6 pg (27-33); Mean Corpuscular Volume 93.3 fl (85-98); Mean Platelet Volume 9.4 fL (7.4-10.4); Monocytes # 0.6 10^3/uL (0.2-0.9); Monocytes % 9.1 %; Neutrophils # 4.74 10^3/uL (1.8-7.7); Neutrophils % 71.8 %; Nucleated Red Blood Cells % 0 %; Platelet Count 309 10^3/cmm (157-399); Red Blood Count 3.45 10^6/uL (3.85-5.65); Red Cell Distribution Width 16.9 % (12.1-15.1); White Blood Count 6.59 10^3/uL (3.29-11.43)
[2023-09-14] MEDS: ceFAZolin 2,000 MG in sodium chloride 0.9% (plus) 50 ML 100 MG IV ×3 (07:06→22:38)
[2023-09-14 07:11] LABS: Alanine Aminotransferase 8 U/L (0-33); Albumin Level 3.8 g/dL (3.5-5.2); Alkaline Phosphatase 88 U/L (35-105); Anion Gap 14.8 (5-19); Aspartate Amino Transferase 16 U/L (0-32); Blood Urea Nitrogen 18 mg/dL (8-23); Calcium 9.3 mg/dL (8.5-10.5); Carbon Dioxide 20 mmol/L (22-29); Chloride 105 mmol/L (98-107); Globulin 2.7 g/dL (1.3-4.6); Glucose 81 mg/dL (65-115); Osmolality Calculated 283 mOsm/kg (285-295); Potassium 3.8 mmol/L (3.5-5.1); Sodium 136 mmol/L (136-145); Total Bilirubin 0.8 mg/dL (0.15-1.2); Total Protein 6.5 g/dL (6.6-8.7)
[2023-09-14] MEDS: tranexamic acid 1,000 MG/100 ML PREMIX 600 MG IV ×2 (07:40→16:02)
--- NOTE | 2023-09-14 07:49 | ANES.PREANE2 ---
Pre-Anesthetic Assessment Height/Weight: Height 1.68 m Weight 40.823 kg Temp Pulse Resp BP Pulse Ox O2 Del Method 97 F L 76 18 151/102 97 Room Air 09/14/23 05:56 09/14/23 05:56 09/14/23 05:56 09/14/23 05:56 09/14/23 05:56 09/14/23 06:24 Preop Diagnosis: Primary osteoarthritis right knee Operation Date: 09/14/23 07:00 Proposed Procedures p David Robot Total Knee Arthroplasty(Right) - Laura Harper MD Familial anesthetic complications: none Was Beta Lydia taken within 24 hours: N/A Was Clonidine taken within 24 hours: N/A Last intake: Intake Last Liquid Date 09/13/23 Last Liquid Time 19:00 Last Solid Date 09/13/23 Last Solid Time 19:00 Social No alcohol and No tobacco Exam alert, oriented x 3 and clear to auscultation bilaterally Airway Submandibular: within normal limits Cervical ROM: within normal limits Mallampati: Class II Dentition: false CV/HEM Atrial Fibrillation, Anemia and Hypertension Chronic Renal Insufficiency GI Gastroesophageal Reflux Disease Metabolic Thyroid Disease [facility] [place] Osteoarthritis/DJD Anesthetic Plan ASA status: 3 Anesthesia: Regional (specify below) (SAB with adductor blk) Medications/Allergies Home Medications Medication Instructions Recorded Confirmed Last Taken Type pantoprazole 40 mg tablet,delayed 40 mg PO DAILY 90 days #90 tabs 02/16/20 09/13/23 09/13/23 Rx release (Protonix) ondansetron HCl 4 mg tablet 4 mg PO Q8H PRN Nausea And Vomiting 04/09/23 09/13/23 Unknown History potassium chloride 10 mEq 20 meq PO DAILY 04/09/23 09/14/23 09/13/23 History tablet,extended release tramadol 50 mg tablet 50 mg PO Q8H PRN Pain 04/09/23 09/13/23 09/13/23 History lorazepam 0.5 mg tablet 0.5 mg PO BEDTIME 04/10/23 09/13/23 09/13/23 History multivitamin 1 tab PO DAILY #90 tabs 04/10/23 09/13/23 09/13/23 Rx polyethylene glycol 3350 17 gram 17 g PO Q12H PRN Constipation 04/10/23 09/13/23 09/12/23 History oral powder packet (Miralax) diclofenac sodium 1 % topical gel 2 g topical QID 08/12/23 09/13/23 09/13/23 History (Voltaren Arthritis Pain) meloxicam 7.5 mg tablet 7.5 mg PO DAILY #60 tabs 08/12/23 09/13/23 09/01/23 Rx albuterol sulfate 90 mcg/actuation 2 puff inhalation Q6H PRN Allergy 09/01/23 09/14/23 Unknown History aerosol inhaler Symptoms amiodarone 100 mg tablet 100 mg PO DAILY 09/01/23 09/14/23 09/13/23 History amlodipine 5 mg tablet 5 mg PO DAILY 09/01/23 09/14/23 09/14/23 History cetirizine 5 mg tablet 5 mg PO DAILY PRN Allergy Symptoms 09/01/23 09/13/23 Unknown History docusate sodium 100 mg capsule 100 mg PO DAILY 09/01/23 09/13/23 09/11/23 History ferrous sulfate 325 mg (65 mg 325 mg PO DAILY 09/01/23 09/13/23 09/12/23 History iron) tablet,delayed release fluticasone propionate 50 1 spray intranasal DAILY 09/01/23 09/13/23 Unknown History mcg/actuation nasal spray,suspension furosemide 20 mg tablet 20 mg PO DAILY 09/01/23 09/13/23 09/13/23 History isosorbide dinitrate 30 mg tablet 30 mg PO DAILY 09/01/23 09/14/23 09/13/23 History levothyroxine 112 mcg capsule 112 mcg PO DAILY 09/01/23 09/13/23 09/13/23 History megestrol 400 mg/10 mL (10 mL) 400 mg PO DAILY 09/01/23 09/13/23 09/10/23 History oral suspension Allergies Allergy/AdvReac Type Severity Reaction Status Date / Time No Known Allergies Allergy Verified 09/14/23 06:05 Current Medications Generic Name Dose Route Start Last Admin Trade Name Freq PRN Reason Stop Dose Admin Sodium Chloride 1,000 mls @ 30 mls/hr 09/14/23 06:00 09/14/23 06:44 Sodium Chloride 0.9% IV 09/15/23 05:59 30 mls/hr .Q24H SUMI Administration PFSH Anesthesia Medical History Atrial fibrillation CHF (congestive heart failure) HTN (hypertension) Family History Mother Heart disease Social History Smoking and tobacco/nicotine status: never used tobacco/nicotine Data Anesthesia 09/14/23 06:41 09/14/23 06:41 Short CBC 09/14/23 Range/Units 06:41 WBC 6.59 (3.29-11.43) 10^3/uL Hgb 10.20 L (11.27-16.99) g/dL Hct 32.2 L (36-47) % MCV 93.3 (85-98) fl Plt Count 309 (157-399) 10^3/cmm Neut % (Auto) 71.8 % Neut # (Auto) 4.74 (1.8-7.7) 10^3/uL BMP 09/14/23 06:41 Sodium 136 Potassium 3.8 Chloride 105 Carbon Dioxide 20 L BUN 18 Creatinine 0.9 Glucose 81 Calcium 9.3 Liver Function 09/14/23 Range/Units 06:41 Total Bilirubin 0.8 (0.15-1.2) mg/dL AST 16 (0-32) U/L ALT 8 (0-33) U/L Alkaline Phosphatase 88 (35-105) U/L Albumin 3.8 (3.5-5.2) g/dL Blood Bank 09/14/23 06:41 Blood Type O Positive Rho(D) Type Rh positive Antibody Screen Positive Cardiac Studies: No Data to Display Anesthesia Procedures Nerve Block Nerve Block 1: Main Anesthesia: spinal anesthesia block Time Out Performed: Yes Consent: requested by attending/covering physician, from patient, risks and benefits reviewed and patient agrees to proceed Nerve block location: adductor canal (right) Anesthesia monitors applied: pulse oximetry, EKG, BP cuff and oxygen Nerve block position: supine Anesthetic Used: ropivicaine 0.5% Amount of anesthesia used (mL): 20 Ultrasound used to: recognize landmarks Nerve Stimulator Used?: No Interscalene/Femoral BLK: 4 stimuplex 21 g needle used for position and inplane approach Injection: neg aspiration of heme Patient Tolerated Procedure: well Complications: none
[2023-09-14] MEDS: ceFAZolin 1,000 mg SDV 1000 MG (08:00)
[2023-09-14] MEDS: vancomycin 1,000 MG SDV 1000 MG XX (08:29)
[2023-09-14] MEDS: BUPivacaine liposome 13.3 mg/mL SDV 10 mL 266 MG INFILTRATI (08:41)
[2023-09-14] MEDS: BUPivacaine 0.5% INJ 30 mL (08:41)
[2023-09-14] MEDS: ceFAZolin 1,000 mg SDV 3000 MG IRRIGATION (09:16)
--- NOTE | 2023-09-14 11:17 | XRR_ITS ---
PROCEDURE INFORMATION: Exam: XR Right Knee Exam date and time: 09/14/2023 12:30 PM Age: 88 years old Clinical indication: Device placement; Joint replacement hardware; Prior surgery; Surgery date: Post-operative (0-2 days); Surgery type: Post op RT knee; Additional info: Post operative XR in pacu post right tka. TECHNIQUE: Imaging protocol: Radiologic exam of the right knee. Views: 1 or 2 views. COMPARISON: CT knee RT wo con* [id number] 09/02/2023 3:57 PM FINDINGS: Bones/joints: Anterior skin bonnie. Total-knee replacement. Anatomic alignment. Intra-articular gas. No acute osseous or joint abnormality. Soft tissues: Normal. XR/XR knee RT 1-2V [id number] IMPRESSION: Normal immediate postoperative findings.
--- NOTE | 2023-09-14 11:18 | PM.OP ---
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 Procedure done: Cemented right total knee arthroplasty with David guidance Implants: The Lauren total knee system with a size 4 triathlon cruciate retaining femur right, a triathlon universal tibial component size?3 cemented, a triathlon X3 tibial bearing CS insert size 3 X 10 mm and a beaded triathlon titanium asymmetric patella size 32 x 10 mm Specimens removed/disposition: Bone, disposed of Surgeon: Laura Harper MD Crystal Calibrator: Martha Rutherford NP, who services were required for positioning, retraction, placement of the prosthesis, and intraoperative assistance Anesthesia: Spinal (With supplemental adductor block, ASA 3) Estimated blood loss (mL): 50 Tourniquet time (min): 0 (Not utilized) IV fluids (mL): 1,000 Urine output (mL): 400 Complications: None Findings: Severe degenerative osteoarthritic changes with fixed valgus deformity and flexion contracture Condition: stable Disposition: PACU (Then return to floor for postoperative rehabilitation and pain management) Brief History: This 88-year-old woman presenting to the office for evaluation of right knee pain and presents today for right total knee arthroplasty with David guidance. She has fixed flexion and valgus deformities secondary to longstanding osteoarthritis of the right knee. She has had right knee pain for years but in the past year and a half she has noticed pain getting worse. She had been to an Orthopedic office in [id number] where they recommended she have a TKA. She declined at the time due to her 's declining health. They then offered her injections without having to do surgery. The two injections lasted for about 3 weeks of relief. She has tried PT in the facility she lives in, but this did not provide any improvement. At the facility, she will use a walker, but when she initially presented to our orthopedic clinic, she was in a wheelchair due to severe pain, weakness, and difficulty with range of motion. She notes a history of falls due to dizziness. She is unable to bear weight on the RLE due to severe knee pain. After discussion in the clinic, the patient wished to proceed with total knee arthroplasty. Risks and complications were discussed with her. Consents were signed in the clinic as well. The patient presented with her daughter who was present for signing of the consents and agrees with the surgical procedure. Procedure: The patient was brought to the operating theater, and she was administered a spinal anesthetic, ASA 3, with supplemental adductor block.? The right lower extremity was prepped with Dura-Prep and draped in usual fashion following placement of a tourniquet high on the leg. The leg was then draped free.? Tourniquet was not elevated during the case.? A surgical pause was performed, and at the time of the surgical pause, we confirmed the site and side of surgery. Additionally, we confirmed the appropriate and timely administration of preoperative antibiotics, Ancef 2 g and Transexemic acid 1 g.? The availability of equipment was confirmed, and the patient's identity was verbalized as well.? An additional transexemic acid 1 g will be given on the floor as well. Following the surgical pause, an incision was made centering over the patella continuing proximally and distally as necessary to allow access to the knee joint. Dissection continued through skin and soft tissues using a scalpel. Hemostasis was obtained using electrocautery. The skin incision was followed by a median parapatellar arthrotomy. The leg was extended, and the patella was able to be displaced laterally without difficulty.? Medial release was initially accomplished to allow placement for the David array.? Appropriate arrays and markers were placed in appropriate position for use of the David.? Preoperative planning had been accomplished and was discussed in detail with the [facility] technical sales representative.? Intraoperative mapping of the femur and tibia was accomplished after the arrays were placed.? Internal markers were also placed.? Once we had accomplished the David mapping, we began the appropriate resections for placement of the prosthesis.? The plan was for a cruciate retaining right total knee arthroplasty.? Medial releases were accomplished prior to the surgical procedure to allow balancing of the knee. Once appropriate mapping had been accomplished retraction was established using manual retraction by surgical technicians and also the [facility] leg positioner and retractors.? The knee was evaluated.? There was significant osteoarthritic change.? The tibia was cut first with the David, and this was sized to a size 3 for the initial tibial cut.? Subsequently, appropriate bone resection of the femur was accomplished using the David.? The femur was sized to a size 4.? Osteophytes were removed prior to this portion of the procedure.? We had performed a medial release at the beginning of the procedure to allow for placement of the array and to allow for better planning with flexion and extension adjustments per David programming.? Following this resection, it was felt that appropriate size for the tibia was a size 3.? Tray was noted to fit nicely with good coverage.? Rim fit was accomplished with the size 3. A trial reduction was accomplished after osteophytes have been removed as well as the medial and lateral menisci.? We had removed the anterior cruciate ligament at the beginning of the case and preserved the posterior cruciate ligament.? Trial reduction was accomplished with a size 4 femoral posterior cruciate retaining component and a size 3 tibial tray with a size 3 x?9 CS tibial bearing insert.? With this combo, in spite of posterior release, there was still a flexion contracture. The patient was stable in flexion and not overly tight, however. For this reason, additional femoral resection was accomplished. We resected 2 more millimeters of the femur distally and adjusted chamfer cuts appropriately. Once again trial reduction was accomplished with the above components. With this combination, alignment was felt to be appropriate, and flexion contracture was significantly reduced. Further resection and correction of valgus and flexion was not felt to be appropriate due to potential soft tissue injury.? Subsequently, we trialed with a 10mm tibial insert.? The patella was noted to track nicely.? Decision was made to increase the final component to a 10 mm tibial insert CS.? Trial components were removed after the femur had been drilled.? Prior to removal of the tibial tray which had been pinned in position with appropriate rotation as determined by the David plan, we drilled and broached the tibia.? The decision was made for cemented components secondary to the patient's severe osteopenia from not walking for 2 years.? All trial components were removed, and the wound was irrigated.? Plans were made for insertion of the prosthetic components.? Prior to this, the patella was manually prepared.? After resection of the articular surface with the patellar sneed, it was measured and measured a 32 mm patella.? We resected approximately 8 mm of patella.? Patellar height was restored with the patellar component. Once again, the wound was irrigated.? Surfaces were dried. In preparation was made for cementing. The cement was mixed. We cemented the tibia followed by the femur followed by the patella clearing cement from each component as it was impacted into position. Tibial insert was placed without difficulty. The CS tibial insert was placed prior to placement of the femoral component. The patella was held in position with a patellar clamp.? Exparel was injected about the components deep and superficially.? The knee was then copiously irrigated with betadine and saline and suctioned dry.? Further irrigation was accomplished with saline following the Betadine.? Attention was then directed to closure. Closure was accomplished with 0 Vicryl and strata fix starting proximally and overlap with a strata fix starting distally in the fascial tissues.? This was followed by Surgiflo and vancomycin powder.? Following this, a 2-0 Monocryl was used in the subcutaneous tissues, and the skin was closed with skin bonnie.? Care was taken to assure an excellent subcutaneous as well as skin closure.? A sterile dressing was then placed consisting of Dermabond Prineo, OpSite, sterile soft roll, and an Kyle wrap including over the foot. The patient was returned the Recovery Room in a satisfactory condition. X-rays were obtained and reviewed there.? The patient will be discharged to the floor for postoperative rehabilitation and pain management. Related Problem List Diagnoses (1) Osteoarthritis of right knee: (2) Valgus deformity, not elsewhere classified, right knee:
[2023-09-14] MEDS: oxyCODONE 5 mg IR Tab/Cap PO ×2 (12:41→22:29)
[2023-09-14] MEDS: chlorhexidine gluconate 0.12% Btl 473 mL 30 ML MUCOUS MEM ×3 (12:42→20:01)
--- NOTE | 2023-09-14 13:42 | ANE.PACU2 ---
Inpatient post-anesthesia follow up: Airway intact: Yes Vital signs: Temperature 98.0 F Pulse Rate 68 Respiratory Rate 16 Blood Pressure 142/74 Pulse Oximetry 97 Oxygen Delivery Me thod Room Air Oxygen Flow Rate Fraction of Inspir ed Oxygen Hydration adequate: Yes Nausea and vomiting: No Pain level: 1 Mental status: Baseline
[2023-09-14] MEDS: TRAMadol 50 mg Tablet PO (14:24)
[2023-09-14] MEDS: ondansetron 2 mg/ML SDV 2 mL 4 MG IVP (16:41)
[2023-09-14] MEDS: iron polysaccharide complex 150 mg Capsule PO (17:24)
[2023-09-14] MEDS: mupirocin oint 22 gm 1 APPLIC NASAL (17:24)
[2023-09-14] MEDS: aspirin 325 mg EC Tablet PO (17:24)
[2023-09-14] MEDS: sennosides-docusate Tablet 2 TAB PO (17:25)
[2023-09-14] MEDS: cetirizine 10 mg Tablet 5 MG PO (17:25)
[2023-09-14] MEDS: CELEcoxib 200 mg Capsule PO (17:40)
[2023-09-14] MEDS: LORazepam 0.5 mg Tablet PO (20:00)
[2023-09-15] VITALS (13 sets, daily range): BP systolic 76–127; BP diastolic 44–83; PULSE 91–108; RESP 16–20; TEMP 36.9–37.2; O2SAT 94–97
[2023-09-15] MEDS: acetaminophen 1,000 MG/100 ML PIGGYBACK 400 MG IV ×2 (00:38→08:07)
[2023-09-15] MEDS: ceFAZolin 2,000 MG in sodium chloride 0.9% (plus) 50 ML 100 MG IV (06:02)
[2023-09-15] MEDS: CELEcoxib 200 mg Capsule PO ×2 (06:02→17:29)
[2023-09-15 06:22] LABS: Basophils % 0.4 %; Eosinophils % 0.5 %; Hematocrit 28.5 % (36-47); Lymphocytes % 13.3 %; Mean Corpuscular HGB Conc 30.2 g/dL (30-55); Mean Corpuscular Hemoglobin 29.7 pg (27-33); Mean Corpuscular Volume 98.3 fl (85-98); Mean Platelet Volume 9.9 fL (7.4-10.4); Monocytes # 0.9 10^3/uL (0.2-0.9); Monocytes % 11.7 %; Neutrophils # 5.43 10^3/uL (1.8-7.7); Neutrophils % 73.8 %; Nucleated Red Blood Cells % 0 %; Platelet Count 260 10^3/cmm (157-399); Red Cell Distribution Width 16.8 % (12.1-15.1); White Blood Count 7.36 10^3/uL (3.29-11.43)
[2023-09-15 06:45] LABS: Anion Gap 13.4 (5-19); Blood Urea Nitrogen 19 mg/dL (8-23); Calcium 8.7 mg/dL (8.5-10.5); Carbon Dioxide 18 mmol/L (22-29); Chloride 109 mmol/L (98-107); Glucose 84 mg/dL (65-115); Osmolality Calculated 283 mOsm/kg (285-295); Potassium 4.4 mmol/L (3.5-5.1); Sodium 136 mmol/L (136-145)
[2023-09-15] MEDS: oxyCODONE 5 mg IR Tab/Cap PO ×2 (08:02→21:00)
[2023-09-15] MEDS: megestrol 400 mg/10 mL UDC PO (08:02)
[2023-09-15] MEDS: isosorbide dinitrate 20 mg Tablet 30 MG PO (08:02)
[2023-09-15] MEDS: FUROsemide 20 mg Tablet PO (08:03)
[2023-09-15] MEDS: pantoprazole DR 40 mg Tablet PO (08:03)
[2023-09-15] MEDS: cholecalciferol (vitamin D3) 1,000 unit Tablet 1000 UNIT PO (08:03)
[2023-09-15] MEDS: amlodipine 5 mg Tablet PO (08:04)
[2023-09-15] MEDS: aspirin 325 mg EC Tablet PO (08:04)
[2023-09-15] MEDS: ferrous sulfate EC 325 mg Tablet PO (08:04)
[2023-09-15] MEDS: levothyroxine 112 mcg Tablet PO (08:04)
[2023-09-15] MEDS: sennosides-docusate Tablet 2 TAB PO ×2 (08:04→17:29)
[2023-09-15] MEDS: amiodarone 200 mg Tablet 100 MG PO (08:04)
[2023-09-15] MEDS: multivitamin therapeutic Tablet 1 TAB PO (08:04)
[2023-09-15] MEDS: potassium chloride ER 10 mEq Tablet 20 MEQ PO (08:04)
[2023-09-15] MEDS: docusate sodium 100 mg Capsule PO (08:04)
[2023-09-15] MEDS: iron polysaccharide complex 150 mg Capsule PO ×2 (08:04→17:29)
[2023-09-15] MEDS: chlorhexidine gluconate 0.12% Btl 473 mL 30 ML MUCOUS MEM ×4 (08:05→21:02)
[2023-09-15] MEDS: fluticasone nasal spray 16gm Btl 1 SPRAY INTRANASAL (08:06)
[2023-09-15] MEDS: mupirocin oint 22 gm 1 APPLIC NASAL ×2 (08:06→17:37)
[2023-09-15] MEDS: sodium chloride 0.9% 500 ML 999 ML IV ×2 (11:17→11:18)
--- NOTE | 2023-09-15 11:17 | PC.CHAP ---
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 [] Patient/Family/Request visit [] Outpatient visit [] Follow-up visit [] Physician referral [] Code/Alert [x] Routine visit [] Staff referral [] Actively dying [] Patient sleeping [x] Family support [] [] Out of room [] Palliative care [] [] Receiving care in room [] Pre-surgical visit [] Trauma [] Long length of stay [] ICU visit [] Other: Relational/Emotional Strength [x] Patient feels connected with others/family/visitors/staff [] Distress [] Loneliness/isolation [] Abandonment Spirituality of Patient [x] Person of Olesya [] Attends Pentecostalism of their [place] [x] Believes in Prayer [] Reads Bible or Latter-Day materials [] There are Spiritual issues to be addressed Head [employer]yer Interventions [x] Prayer [] Active listening [] Non-anxious presence [] Spiritual/emotional support [] Crisis/trauma care [] Spiritual counseling [] Bereavement support [] Provided bereavement packet [] Provided Bible/devotional materials [] Provided toy/stuffed animal, coloring book to patient or family member [] Provided Communion [] Anointing/[place] [] Salvation [] Completed spiritual assessment [] Other: Impact on Illness or Injury [] Angry [] Fearful [] Anxious [] Often cries [] Exhaustion [] Unable to work [] Unable to attend moravian [] Unable to walk/stand [] Unable to read [] Unable to drive [] Unable to eat/drink [] Unable to sleep [] Unable to be with family [] Patient intubated [] Other: Summary Time spent with patient 15 min
[2023-09-15] MEDS: sodium chloride 0.9% 1,000 ML 125 ML IV ×2 (11:18→17:34)
[2023-09-15 11:56] LABS: Basophils % 0.4 %; Eosinophils % 0.5 %; Hematocrit 26.4 % (36-47); Lymphocytes # 0.7 10^3/uL (0.8-4.8); Lymphocytes % 8.6 %; Mean Corpuscular HGB Conc 29.5 g/dL (30-55); Mean Corpuscular Hemoglobin 29.8 pg (27-33); Mean Corpuscular Volume 100.8 fl (85-98); Mean Platelet Volume 9.8 fL (7.4-10.4); Monocytes # 1.1 10^3/uL (0.2-0.9); Monocytes % 13.9 %; Neutrophils # 5.85 10^3/uL (1.8-7.7); Neutrophils % 76.2 %; Nucleated Red Blood Cells % 0 %; Platelet Count 257 10^3/cmm (157-399); Red Blood Count 2.62 10^6/uL (3.85-5.65); Red Cell Distribution Width 16.9 % (12.1-15.1); White Blood Count 7.68 10^3/uL (3.29-11.43)
--- NOTE | 2023-09-15 14:34 | PM.CONSULT ---
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 She is postop day 1. Patient was going to be discharged today however became hypotensive this morning with systolic blood pressure high 70s to 80s range. She was given 500 cc normal saline bolus. Hospitalist was consulted for management of medical issues. Patient seen. She is lying in bed appearing comfortable at this time. Daughter at bedside. Daughter is very concerned that if patient goes to intermediate with a low blood pressure but will happen. I reassured her that we will not discharge patient until her breathing is stable. Patient denies chest pain, shortness of breath, abdominal pain, nausea, vomiting, diarrhea. Denies lightheadedness. Says she is comfortable from the knee aspect. Medications/Allergies Home Medications Medication Instructions Recorded Confirmed Last Taken Type pantoprazole 40 mg tablet,delayed 40 mg PO DAILY 90 days #90 tabs 02/16/20 09/13/23 09/13/23 Rx release (Protonix) ondansetron HCl 4 mg tablet 4 mg PO Q8H PRN Nausea And Vomiting 04/09/23 09/13/23 Unknown History potassium chloride 10 mEq 20 meq PO DAILY 04/09/23 09/14/23 09/13/23 History tablet,extended release tramadol 50 mg tablet 50 mg PO Q8H PRN Pain 04/09/23 09/13/23 09/13/23 History lorazepam 0.5 mg tablet 0.5 mg PO BEDTIME 04/10/23 09/13/23 09/13/23 History multivitamin 1 tab PO DAILY #90 tabs 04/10/23 09/13/23 09/13/23 Rx polyethylene glycol 3350 17 gram 17 g PO Q12H PRN Constipation 04/10/23 09/13/23 09/12/23 History oral powder packet (Miralax) diclofenac sodium 1 % topical gel 2 g topical QID 08/12/23 09/13/23 09/13/23 History (Voltaren Arthritis Pain) meloxicam 7.5 mg tablet 7.5 mg PO DAILY #60 tabs 08/12/23 09/13/23 09/01/23 Rx albuterol sulfate 90 mcg/actuation 2 puff inhalation Q6H PRN Allergy 09/01/23 09/14/23 Unknown History aerosol inhaler Symptoms amiodarone 100 mg tablet 100 mg PO DAILY 09/01/23 09/14/23 09/13/23 History amlodipine 5 mg tablet 5 mg PO DAILY 09/01/23 09/14/23 09/14/23 History cetirizine 5 mg tablet 5 mg PO DAILY PRN Allergy Symptoms 09/01/23 09/13/23 Unknown History docusate sodium 100 mg capsule 100 mg PO DAILY 09/01/23 09/13/23 09/11/23 History ferrous sulfate 325 mg (65 mg 325 mg PO DAILY 09/01/23 09/13/23 09/12/23 History iron) tablet,delayed release fluticasone propionate 50 1 spray intranasal DAILY 09/01/23 09/13/23 Unknown History mcg/actuation nasal spray,suspension furosemide 20 mg tablet 20 mg PO DAILY 09/01/23 09/13/23 09/13/23 History isosorbide dinitrate 30 mg tablet 30 mg PO DAILY 09/01/23 09/14/23 09/13/23 History levothyroxine 112 mcg capsule 112 mcg PO DAILY 09/01/23 09/13/23 09/13/23 History megestrol 400 mg/10 mL (10 mL) 400 mg PO DAILY 09/01/23 09/13/23 09/10/23 History oral suspension oxycodone 5 mg tablet 2.5 - 5 mg PO Q4H PRN Moderate 09/15/23 Unknown Rx Pain 7 days #30 tabs Allergies Allergy/AdvReac Type Severity Reaction Status Date / Time No Known Allergies Allergy Verified 09/14/23 06:05 Current Medications Generic Name Dose Route Start Last Admin Trade Name Freq PRN Reason Stop Dose Admin Amiodarone HCl 100 mg 09/15/23 09:00 09/15/23 08:04 Amiodarone 200 Mg Tablet PO 100 mg DAILY SUMI Administration Amlodipine Besylate 5 mg 09/15/23 09:00 09/15/23 08:04 Amlodipine 5 Mg Tablet PO 5 mg DAILY SUMI Administration Aspirin 325 mg 09/14/23 18:21 09/15/23 08:04 Aspirin 325 Mg Ec Tablet PO 325 mg DAILY SUMI Administration Celecoxib 200 mg 09/14/23 18:30 09/15/23 06:02 Celecoxib 200 Mg Capsule PO 200 mg Q12H SUMI Administration Cetirizine HCl 5 mg 09/14/23 11:35 09/14/23 17:25 Cetirizine 10 Mg Tablet PO 5 mg DAILY PRN Administration Allergy Symptoms Chlorhexidine Gluconate 30 ml 09/14/23 13:00 09/15/23 08:05 Chlorhexidine Gluconate 0.12% Btl 473 Ml MUCOUS MEM 30 ml QID SUMI Administration Docusate Sodium 100 mg 09/15/23 09:00 09/15/23 08:04 Docusate Sodium 100 Mg Capsule PO 100 mg DAILY SUMI Administration Ferrous Sulfate 325 mg 09/15/23 09:00 09/15/23 08:04 Ferrous Sulfate Ec 325 Mg Tablet PO 325 mg DAILY SUMI Administration Fluticasone Propionate 1 spray 09/15/23 09:00 09/15/23 08:06 Fluticasone Nasal [place] 16gm Btl INTRANASAL 1 spray DAILY SUMI Administration Furosemide 20 mg 09/15/23 09:00 09/15/23 08:03 Furosemide 20 Mg Tablet PO 20 mg DAILY SUMI Administration Sodium Chloride 1,000 mls @ 125 mls/hr 09/15/23 11:15 09/15/23 11:18 Sodium Chloride 0.9% IV 125 mls/hr .Q8H SUMI Administration Isosorbide Dinitrate 30 mg 09/15/23 09:00 09/15/23 08:02 Isosorbide Dinitrate 20 Mg Tablet PO 30 mg DAILY SUMI Administration Levothyroxine Sodium 112 mcg 09/15/23 09:00 09/15/23 08:04 Levothyroxine 112 Mcg Tablet PO 112 mcg DAILY SUMI Administration Lorazepam 0.5 mg 09/14/23 21:00 09/14/23 20:00 Lorazepam 0.5 Mg Tablet PO 0.5 mg BEDTIME SUMI Administration Megestrol Acetate 400 mg 09/15/23 09:00 09/15/23 08:02 Megestrol 400 Mg/10 Ml Udc PO 400 mg DAILY SUMI Administration Multivitamins Therapeutic 1 tab 09/15/23 09:00 09/15/23 08:04 Multivitamin Therapeutic Tablet PO 1 tab DAILY SUMI Administration Mupirocin 1 applic 09/14/23 18:00 09/15/23 08:06 Mupirocin Oint 22 Gm NASAL 09/19/23 17:59 1 applic BID SUMI Administration Protocol Ondansetron HCl 4 mg 09/14/23 11:17 09/14/23 16:41 Ondansetron 2 Mg/Ml Sdv 2 Ml IVP 4 mg Q6H PRN Administration NAUSEA AND VOMITING Oxycodone HCl 5 mg 09/14/23 11:17 09/15/23 08:02 Oxycodone 5 Mg Ir Tab/Cap PO 5 mg Q4H PRN Administration MODERATE PAIN Pantoprazole Sodium 40 mg 09/15/23 09:00 09/15/23 08:[address] 40 Mg Tablet PO 40 mg DAILY SUMI Administration Polysaccharide Iron Complex 150 mg 09/14/23 18:00 09/15/23 08:04 Iron Polysaccharide Complex 150 Mg Capsule PO 150 mg BIDWM SUMI Administration Potassium Chloride 20 meq 09/15/23 09:00 09/15/23 08:04 Potassium Chloride Er 10 Meq Tablet PO 20 meq DAILY SUMI Administration Senna/Docusate Sodium 2 tab 09/14/23 18:00 09/15/23 08:04 Sennosides-Docusate Tablet PO 2 tab BID SUMI Administration Tramadol HCl 50 mg 09/14/23 11:16 09/14/23 14:24 Tramadol 50 Mg Tablet PO 50 mg Q8H PRN Administration Pain Vitamin D 1,000 unit 09/15/23 09:00 09/15/23 08:03 Cholecalciferol (Vitamin D3) 1,000 Unit Tablet PO 1,000 unit DAILY SUMI Administration PFSH Acute PFSH: Medical History Atrial fibrillation CHF (congestive heart failure) HTN (hypertension) Family History Mother Heart disease Social History Smoking and tobacco/nicotine status: never used tobacco/nicotine Vitals/I&O/Wt Last Vital Signs Temp 98.5 F 09/15/23 11:16 Pulse 108 H 09/15/23 11:16 Resp 16 09/15/23 11:16 BP 101/65 09/15/23 11:16 Pulse Ox 97 09/15/23 11:16 O2 Del Method Room Air 09/15/23 11:16 09/14/23 09/15/23 09/15/23 22:59 06:59 14:59 Intake Total 490 / 980 200 / 1180 1580 / 1580 Output Total 600 / 1450 650 / 2100 Balance -110 / -470 -450 / -920 1580 / 1580 Weight last 48 hrs Weight 56.444 kg Weight 43.545 kg Weight 40.823 kg Physical Exam Narrative: Abdomen soft, nontender Lungs clear to auscultation bilaterally Normal S1-S2 No acute distress Alert oriented x3 No focal neurological deficits Right knee wrapped in compression bandage Urinary Catheter Management: [place]: Cath Placed During This Visit: yes, but has since been removed by the nurse Reason for Continuing Indwelling Catheter: Decision to DC Catheter Urinary Catheter Date of Insertion: 09/14/23 Urinary Catheter Time of Insertion: 07:30 Date Urinary Catheter Removed: 09/15/23 Time Urinary Catheter Discontinued: 06:30 Data 09/16/23 05:46 09/16/23 05:46 A&P Assessment and plan (1) Valgus deformity, not elsewhere classified, right knee: (2) Osteoarthritis of right knee: Qualifiers: Osteoarthritis type: primary Qualified Code(s): M17.11 - Unilateral primary osteoarthritis, right knee (3) CHF (congestive heart failure): Qualifiers: Heart failure type: diastolic Heart failure chronicity: chronic Qualified Code(s): I50.32 - Chronic diastolic (congestive) heart failure (4) HTN (hypertension): (5) Atrial fibrillation: Qualifiers: Atrial fibrillation type: persistent (not longstanding) Qualified Code(s): I48.19 - Other persistent atrial fibrillation (6) Hypotension: Plan #Hypotension #History of hypertension #Atrial fibrillation, not in RVR right now #GERD #Osteoarthritis of knee status post right total knee arthroplasty postop day 1 #Advanced age ? Patient is status post 500 cc normal saline bolus ? We will give an additional 500 cc normal saline bolus and placed on normal saline continuous infusion ? Continue amiodarone ? Hold amlodipine ? Continue isosorbide 30 daily ? Hold Lasix ? Continue Protonix ? Continue pain mgmt ? Aspirin 325 daily ? Check CBC to assess for drop in hemoglobin. We will recheck another in a.m. to ensure stability. ? Check orthostatic vitals in a.m. - Abdomen soft, nontender - medicine will continue to follow. Full code Consult Attestations Medical Necessity Statement: Patient requires continued hospital stay secondary to low blood pressure. Once blood pressure is stable and hemoglobin is stable she may be able to discharge to nursing facility. Diagnoses Valgus deformity, not elsewhere classified, right knee M21.061 Osteoarthritis of right knee M17.11 Osteoarthritis type: primary CHF (congestive heart failure) I50.32 Heart failure type: diastolic Heart failure chronicity: chronic HTN (hypertension) I10 Atrial fibrillation I48.19 Atrial fibrillation type: persistent (not longstanding) Hypotension I95.9
[2023-09-15] MEDS: TRAMadol 50 mg Tablet PO (14:40)
--- NOTE | 2023-09-15 15:41 | P.PN_ITS ---
Subjective Subjective: Patient is 1 day following right total knee arthroplasty for severe valgus deformity and flexion contracture with advanced osteoarthritis. Today, she is doing well, however, she had a decrease in blood pressure this morning following normal medications and pain medications. Consult will be placed to medicine regarding this. Medications: Reviewed: Yes Vitals/I&O/Wt Last Vital Signs Temp 98.7 F 09/15/23 15:39 Pulse 105 H 09/15/23 15:39 Resp 18 09/15/23 15:39 BP 115/73 09/15/23 15:39 Pulse Ox 96 09/15/23 15:39 O2 Del Method Room Air 09/15/23 15:39 09/15/23 09/15/23 09/15/23 06:59 14:59 22:59 Intake Total 200 / 1180 1580 / 1580 Output Total 650 / 2100 Balance -450 / -920 1580 / 1580 Weight last 48 hrs Weight 124 lb 7 oz Weight 96 lb Weight 90 lb Physical Exam Const: COMMON NORMALS: no acute distress, average body habitus, patient oriented x3 and alert GENERAL APPEARANCE: cooperative and comfortable ORIENTATION/CONSCIOUSNESS: Yes awake HENMT: COMMON NORMALS: normocephalic and atraumatic HEAD & SCALP: normocephalic and atraumatic Eye: GENERAL EYE: appearance normal, both eyes and all related structures Chest: COMMONS NORMALS: normal inspection of the chest Resp: COMMON NORMALS: normal respiratory effort EFFORT & INSPECTION: Yes able to speak in complete sentences and Yes symmetric chest movement Extremity: RIGHT LOWER EXTREMITY: Yes knee joint (Large outer dressing is removed. There is been no significant drainage.) Right knee: Yes inspection (Calf is soft and nontender.), Yes ROM (Valgus is corrected, patient holds knee with slight flexion contracture) and Yes neurovascular exam (Intact distally including dorsiflexion) Neuro: COMMON NORMALS: patient oriented x3 SENSORIUM/ORIENTATION: Yes alert Psych: COMMON NORMALS: mental status grossly normal APPEARANCE: Yes grossly normal ATTITUDE: Yes calm and Yes engaged ATTENTION/CONCENTRATION: Yes attention grossly intact Skin: COMMON NORMALS: no rashes or lesions noted GENERAL SKIN EXAM: no rashes or lesions noted Urinary Catheter Management: [place]: Cath Placed During This Visit: yes, but has since been removed by the nurse Reason for Continuing Indwelling Catheter: Decision to DC Catheter Urinary Catheter Date of Insertion: 09/14/23 Urinary Catheter Time of Insertion: 07:30 Date Urinary Catheter Removed: 09/15/23 Time Urinary Catheter Discontinued: 06:30 Data 09/15/23 10:48 09/15/23 06:10 A&P Assessment and plan (1) Osteoarthritis of right knee: Orthopedically, the patient is doing well following right total knee arthroplasty for severe valgus deformity and advanced osteoarthritis of the right knee with flexion contracture. This morning, the patient became hypotensive, and medicine was consulted. The medical service has concerns re garding her blood pressure, and they wish to keep her longer in the hospital for monitoring to assure that she is safe for discharge to home. The family's plan is to place her in residential, and they are prepared to self-pay if necessary. She will receive home therapy in this fashion. She will follow-up with me in the office as scheduled. Qualifiers: Osteoarthritis type: primary Qualified Code(s): M17.11 - Unilateral primary osteoarthritis, right knee (2) Valgus deformity, not elsewhere classified, right knee: (3) Chronic pain of right knee: Attestations Medical Necessity Statement*: Patient had hypotensive episode this morning, and is not felt safe for discharge to home at this point in time. Coding Level of Care Code Acute Code for [facility] Diagnoses Osteoarthritis of right knee M17.11 Osteoarthritis type: primary Valgus deformity, not elsewhere classified, right knee M21.061 Chronic pain of right knee M25.561; G89.29
[2023-09-15] MEDS: acetaminophen 500 mg Tablet 1000 MG PO (17:33)
[2023-09-15] MEDS: LORazepam 0.5 mg Tablet PO (21:00)
[2023-09-15 21:16] LABS: Basophils % 0.2 %; Eosinophils % 0.4 %; Hematocrit 28.4 % (36-47); Lymphocytes # 0.9 10^3/uL (0.8-4.8); Lymphocytes % 9.8 %; Mean Corpuscular HGB Conc 30.6 g/dL (30-55); Mean Corpuscular Hemoglobin 29.8 pg (27-33); Mean Corpuscular Volume 97.3 fl (85-98); Monocytes % 10.8 %; Neutrophils # 7.07 10^3/uL (1.8-7.7); Neutrophils % 78.4 %; Nucleated Red Blood Cells % 0 %; Platelet Count 298 10^3/cmm (157-399); Red Blood Count 2.92 10^6/uL (3.85-5.65); Red Cell Distribution Width 17.2 % (12.1-15.1); White Blood Count 9.04 10^3/uL (3.29-11.43)
--- NOTE | 2023-09-15 23:35 | PC.NURSE ---
Dr. Reynaga notified of pt BP running high, c/o feeling jittery, fluids stopped and warm blanket
[2023-09-16] VITALS (11 sets, daily range): BP systolic 114–153; BP diastolic 67–87; PULSE 104–128; RESP 13–18; TEMP 36.4–37; O2SAT 93–98
[2023-09-16] MEDS: acetaminophen 500 mg Tablet 1000 MG PO ×3 (03:26→17:34)
[2023-09-16] MEDS: oxyCODONE 5 mg IR Tab/Cap PO ×2 (03:33→17:34)
[2023-09-16] MEDS: sodium chloride 0.9% 1,000 ML 75 ML IV (05:40)
[2023-09-16 06:01] LABS: Basophils % 0.3 %; Eosinophils % 0.4 %; Hematocrit 24.2 % (36-47); Lymphocytes # 0.7 10^3/uL (0.8-4.8); Lymphocytes % 8.4 %; Mean Corpuscular HGB Conc 31.4 g/dL (30-55); Mean Corpuscular Hemoglobin 29.9 pg (27-33); Mean Corpuscular Volume 95.3 fl (85-98); Mean Platelet Volume 10.1 fL (7.4-10.4); Monocytes # 0.8 10^3/uL (0.2-0.9); Monocytes % 10.3 %; Neutrophils # 6.19 10^3/uL (1.8-7.7); Neutrophils % 80.1 %; Nucleated Red Blood Cells % 0 %; Platelet Count 261 10^3/cmm (157-399); Red Blood Count 2.54 10^6/uL (3.85-5.65); Red Cell Distribution Width 17.2 % (12.1-15.1); White Blood Count 7.73 10^3/uL (3.29-11.43)
[2023-09-16 06:23] LABS: Anion Gap 14.5 (5-19); Blood Urea Nitrogen 18 mg/dL (8-23); Calcium 8.2 mg/dL (8.5-10.5); Carbon Dioxide 18 mmol/L (22-29); Chloride 115 mmol/L (98-107); Glucose 130 mg/dL (65-115); Osmolality Calculated 300 mOsm/kg (285-295); Potassium 4.5 mmol/L (3.5-5.1); Sodium 143 mmol/L (136-145)
[2023-09-16] MEDS: ferrous sulfate EC 325 mg Tablet PO (08:54)
[2023-09-16] MEDS: pantoprazole DR 40 mg Tablet PO (08:55)
[2023-09-16] MEDS: multivitamin therapeutic Tablet 1 TAB PO (08:55)
[2023-09-16] MEDS: cholecalciferol (vitamin D3) 1,000 unit Tablet 1000 UNIT PO (08:55)
[2023-09-16] MEDS: amiodarone 200 mg Tablet 100 MG PO (08:55)
[2023-09-16] MEDS: docusate sodium 100 mg Capsule PO (08:55)
[2023-09-16] MEDS: sennosides-docusate Tablet 2 TAB PO ×2 (08:55→17:34)
[2023-09-16] MEDS: chlorhexidine gluconate 0.12% Btl 473 mL 30 ML MUCOUS MEM ×4 (08:56→20:45)
[2023-09-16] MEDS: potassium chloride ER 10 mEq Tablet 20 MEQ PO (08:56)
[2023-09-16] MEDS: fluticasone nasal spray 16gm Btl 1 SPRAY INTRANASAL (08:56)
[2023-09-16] MEDS: iron polysaccharide complex 150 mg Capsule PO ×2 (08:56→17:34)
[2023-09-16] MEDS: aspirin 325 mg EC Tablet PO (08:56)
[2023-09-16] MEDS: mupirocin oint 22 gm 1 APPLIC NASAL ×2 (08:57→17:35)
[2023-09-16] MEDS: levothyroxine 112 mcg Tablet PO (09:05)
[2023-09-16] MEDS: megestrol 400 mg/10 mL UDC PO (10:41)
--- NOTE | 2023-09-16 11:06 | PM.PN ---
Subjective Subjective: Hemoglobin 7.60, blood pressure stable overnight. This morning 140/80. Saturating 97% on room air. Patient eating. Daughter at bedside. Does not offer any complaints at this time. Vitals/I&O/Wt Last Vital Signs Temp 98.4 F 09/16/23 10:55 Pulse 116 H 09/16/23 10:55 Resp 16 09/16/23 10:55 BP 143/80 09/16/23 10:55 Pulse Ox 97 09/16/23 10:55 O2 Del Method Room Air 09/16/23 08:44 09/15/23 09/16/23 09/16/23 22:59 06:59 14:59 Intake Total 903.333 / 2483.333 1000.000 / 3483.333 Output Total 200 / 200 700 / 900 300 / 300 Balance 703.333 / 2283.333 300.000 / 2583.333 -300 / -300 Weight last 48 hrs Weight 57.408 kg Weight 56.444 kg Weight 43.545 kg Physical Exam Narrative: Abdomen soft, nontender Lungs clear to auscultation bilaterally Normal S1-S2 No acute distress Alert oriented x3 No focal neurological deficits Right knee wrapped in compression bandage Urinary Catheter Management: [place]: Cath Placed During This Visit: yes, but has since been removed by the nurse Reason for Continuing Indwelling Catheter: Decision to DC Catheter Urinary Catheter Date of Insertion: 09/14/23 Urinary Catheter Time of Insertion: 07:30 Date Urinary Catheter Removed: 09/15/23 Time Urinary Catheter Discontinued: 06:30 Data 09/16/23 05:46 09/16/23 05:46 A&P Assessment and plan (1) Valgus deformity, not elsewhere classified, right knee: (2) Osteoarthritis of right knee: Qualifiers: Osteoarthritis type: primary Qualified Code(s): M17.11 - Unilateral primary osteoarthritis, right knee (3) CHF (congestive heart failure): Qualifiers: Heart failure type: diastolic Heart failure chronicity: chronic Qualified Code(s): I50.32 - Chronic diastolic (congestive) heart failure (4) HTN (hypertension): (5) Atrial fibrillation: Qualifiers: Atrial fibrillation type: persistent (not longstanding) Qualified Code(s): I48.19 - Other persistent atrial fibrillation (6) Hypotension: Plan #Hypotension #History of hypertension #Atrial fibrillation, not in RVR right now #GERD #Osteoarthritis of knee status post right total knee arthroplasty postop day 1 #Advanced age ? Stop IV fluids ? Continue amiodarone ? Hold amlodipine ? Continue isosorbide 30 daily ? Hold Lasix ? Continue Protonix ? Continue pain mgmt ? Aspirin 325 daily ? Check CBC in AM. ? Check orthostatic vitals in a.m. - Abdomen soft, nontender - medicine will continue to follow. - Pt will possibly be discharged in AM Full code Attestations Medical Necessity Statement*: DC in AM Diagnoses Valgus deformity, not elsewhere classified, right knee M21.061 Osteoarthritis of right knee M17.11 Osteoarthritis type: primary CHF (congestive heart failure) I50.32 Heart failure type: diastolic Heart failure chronicity: chronic HTN (hypertension) I10 Atrial fibrillation I48.19 Atrial fibrillation type: persistent (not longstanding) Hypotension I95.9
[2023-09-16] MEDS: TRAMadol 50 mg Tablet PO (13:30)
[2023-09-16] MEDS: LORazepam 0.5 mg Tablet PO (20:45)
[2023-09-17] MEDS: acetaminophen 500 mg Tablet 1000 MG PO ×2 (02:32→09:23)
[2023-09-17 03:12] VITALS: BP 133/79; PULSE 101; RESP 13; TEMP 36.7; O2SAT 97
[2023-09-17 07:29] LABS: Basophils % 0.3 %; Eosinophils % 0.4 %; Lymphocytes # 0.7 10^3/uL (0.8-4.8); Lymphocytes % 9.9 %; Mean Corpuscular HGB Conc 30.7 g/dL (30-55); Mean Corpuscular Hemoglobin 29.8 pg (27-33); Mean Corpuscular Volume 96.9 fl (85-98); Mean Platelet Volume 9.8 fL (7.4-10.4); Monocytes # 0.5 10^3/uL (0.2-0.9); Monocytes % 7.1 %; Neutrophils # 6.12 10^3/uL (1.8-7.7); Neutrophils % 81.9 %; Nucleated Red Blood Cells % 0 %; Platelet Count 303 10^3/cmm (157-399); Red Blood Count 2.89 10^6/uL (3.85-5.65); Red Cell Distribution Width 17.7 % (12.1-15.1); White Blood Count 7.47 10^3/uL (3.29-11.43)
[2023-09-17 07:47] LABS: Anion Gap 16.2 (5-19); Blood Urea Nitrogen 19 mg/dL (8-23); Calcium 8.9 mg/dL (8.5-10.5); Carbon Dioxide 18 mmol/L (22-29); Chloride 110 mmol/L (98-107); Glucose 94 mg/dL (65-115); Osmolality Calculated 292 mOsm/kg (285-295); Potassium 4.2 mmol/L (3.5-5.1); Sodium 140 mmol/L (136-145)
--- NOTE | 2023-09-17 08:00 | XRR_ITS ---
PROCEDURE INFORMATION: Exam: XR Chest Exam date and time: 09/17/2023 9:00 AM Age: 88 years old Clinical indication: Shortness of breath; Additional info: F/u TECHNIQUE: Imaging protocol: Radiologic exam of the chest. Views: 1 view. COMPARISON: CR XR chest 1V [id number] 03/22/2018 7:50 PM FINDINGS: Lungs: Unremarkable. No consolidation. Pleural spaces: Small bilateral pleural effusions are unchanged since 2018. Heart/Mediastinum: Mild cardiomegaly. Bones/joints: Unremarkable. Other findings: Small scattered calcified granulomata. XR/XR chest 1V portable [id number] IMPRESSION: No significant change. Mild cardiomegaly and effusions.
[2023-09-17 09:04] VITALS: PULSE 101; RESP 16; O2SAT 97
[2023-09-17] MEDS: pantoprazole DR 40 mg Tablet PO (09:15)
[2023-09-17] MEDS: iron polysaccharide complex 150 mg Capsule PO (09:15)
[2023-09-17] MEDS: cholecalciferol (vitamin D3) 1,000 unit Tablet 1000 UNIT PO (09:15)
[2023-09-17] MEDS: multivitamin therapeutic Tablet 1 TAB PO (09:15)
[2023-09-17] MEDS: amiodarone 200 mg Tablet 100 MG PO (09:16)
[2023-09-17] MEDS: ferrous sulfate EC 325 mg Tablet PO (09:16)
[2023-09-17] MEDS: levothyroxine 112 mcg Tablet PO (09:16)
[2023-09-17] MEDS: sennosides-docusate Tablet 2 TAB PO (09:16)
[2023-09-17] MEDS: docusate sodium 100 mg Capsule PO (09:16)
[2023-09-17] MEDS: aspirin 325 mg EC Tablet PO (09:16)
[2023-09-17] MEDS: chlorhexidine gluconate 0.12% Btl 473 mL 30 ML MUCOUS MEM (09:17)
[2023-09-17] MEDS: megestrol 400 mg/10 mL UDC PO (09:17)
[2023-09-17] MEDS: mupirocin oint 22 gm 1 APPLIC NASAL (09:18)
[2023-09-17] MEDS: isosorbide dinitrate 20 mg Tablet 30 MG PO (09:23)
--- NOTE | 2023-09-17 11:44 | PM.DCS ---
Discharge Providers Date of Admission: 09/15/23 12:51 Date of Discharge: September 17, 2023 Attending Provider at Admission: Laura Harper MD Attending Provider at Discharge: Rosanne Fernando MD Primary Care Provider: Monica Sheets MD Diagnoses at Discharge Discharge Diagnosis (1) Valgus deformity, not elsewhere classified, right knee: Status: Acute (2) Osteoarthritis of right knee: Status: Acute Qualifiers: Osteoarthritis type: primary Qualified Code(s): M17.11 - Unilateral primary osteoarthritis, right knee (3) CHF (congestive heart failure): Status: Acute Qualifiers: Heart failure chronicity: chronic Heart failure type: diastolic Qualified Code(s): I50.32 - Chronic diastolic (congestive) heart failure (4) HTN (hypertension): Status: Acute (5) Atrial fibrillation: Status: Acute Qualifiers: Atrial fibrillation type: persistent (not longstanding) Qualified Code(s): I48.19 - Other persistent atrial fibrillation (6) Hypotension: Status: Resolved Reason for Visit Reason for Visit: 18569 M17.10 Hospital Course Hospital Course Patient initially admitted under observation under orthopedic surgery For a right knee arthroplasty. Postop day 1 she developed hypotension and therefore medicine was consulted. Orthopedic surgery signed off and medicine became primary service at that point. Patient was given IV fluids and hemoglobin was monitored. Orthostatics were initially positive. After fluid resuscitation patient improved. It was ensured that hemoglobin is stable and then she was discharged to longterm in stable condition. Sent home on aspirin 325 daily. All questions answered. Blood pressure medications were held during hospitalization however restarted at discharge. Physical Exam Narrative: Abdomen soft, nontender Lungs clear to auscultation bilaterally Normal S1-S2 No acute distress Alert oriented x3 No focal neurological deficits Right knee wrapped in compression bandage Urinary Catheter Management: [place]: Cath Placed During This Visit: yes, but has since been removed by the nurse Reason for Continuing Indwelling Catheter: Decision to DC Catheter Urinary Catheter Date of Insertion: 09/14/23 Urinary Catheter Time of Insertion: 07:30 Date Urinary Catheter Removed: 09/15/23 Time Urinary Catheter Discontinued: 06:30 Discharge Data Studies Completed and Pending Completed Studies During Hospitalization Category Date Time Status XR chest 1V portable [id number] Routine Exams 09/17/23 08:00 Completed XR knee RT 1-2V [id number] Stat Exams 09/14/23 11:17 Completed Pending at discharge Category Date Time Status Antibody Identification Routine Lab 09/14/23 06:41 Results Antigen Typing Patient Routine Lab 09/14/23 06:41 Results Leukocyte Reduced RBC Routine Lab 09/14/23 06:41 Results Type and Screen Routine Lab 09/14/23 06:41 Results Radiology Impressions Knee X-Ray 09/14/23 11:17 IMPRESSION: Normal immediate postoperative findings. Chest X-Ray 09/17/23 08:00 IMPRESSION: No significant change. Mild cardiomegaly and effusions. Laboratory Results WBC 7.47 10^3/uL (3.29-11.43) 09/17/23 07:03 RBC 2.89 10^6/uL (3.85-5.65) L 09/17/23 07:03 Hgb 8.60 g/dL (11.27-16.99) L 09/17/23 07:03 Hct 28.0 % (36-47) L 09/17/23 07:03 MCV 96.9 fl (85-98) 09/17/23 07:03 MCH 29.8 pg (27-33) 09/17/23 07:03 MCHC 30.7 g/dL (30-55) 09/17/23 07:03 RDW 17.7 % (12.1-15.1) H 09/17/23 07:03 Plt Count 303 10^3/cmm (157-399) 09/17/23 07:03 MPV 9.8 fL (7.4-10.4) 09/17/23 07:03 Neut % (Auto) 81.9 % 09/17/23 07:03 Lymph % (Auto) 9.9 % 09/17/23 07:03 Hood % (Auto) 7.1 % 09/17/23 07:03 Eos % (Auto) 0.4 % 09/17/23 07:03 Baso % (Auto) 0.3 % 09/17/23 07:03 Neut # (Auto) 6.12 10^3/uL (1.8-7.7) 09/17/23 07:03 Lymph # (Auto) 0.7 10^3/uL (0.8-4.8) L 09/17/23 07:03 Hood # (Auto) 0.5 10^3/uL (0.2-0.9) 09/17/23 07:03 Eos # (Auto) 0.0 10^3/uL (0.0-0.8) 09/17/23 07:03 Baso # (Auto) 0.0 10^3/uL (0.0-0.1) 09/17/23 07:03 Nucleated RBC % (auto) 0 % 09/17/23 07:03 Nucleated RBCs # 0.0 /100WBC 09/17/23 07:03 Sodium 140 mmol/L (136-145) 09/17/23 07:03 Potassium 4.2 mmol/L (3.5-5.1) 09/17/23 07:03 Chloride 110 mmol/L (98-107) H 09/17/23 07:03 Carbon Dioxide 18 mmol/L (22-29) L 09/17/23 07:03 Anion Gap 16.2 (5-19) 09/17/23 07:03 BUN 19 mg/dL (8-23) 09/17/23 07:03 Creatinine 0.8 mg/dL (0.5-0.9) 09/17/23 07:03 GFR Calculation Not Reportable 09/17/23 07:03 Glucose 94 mg/dL (65-115) 09/17/23 07:03 Calculated Osmolality 292 mOsm/kg (285-295) 09/17/23 07:03 Calcium 8.9 mg/dL (8.5-10.5) 09/17/23 07:03 Magnesium 2.0 mg/dL (1.7-2.3) 09/16/23 05:46 Total Bilirubin 0.8 mg/dL (0.15-1.2) 09/14/23 06:41 AST 16 U/L (0-32) 09/14/23 06:41 ALT 8 U/L (0-33) 09/14/23 06:41 Alkaline Phosphatase 88 U/L (35-105) 09/14/23 06:41 Total Protein 6.5 g/dL (6.6-8.7) L 09/14/23 06:41 Albumin 3.8 g/dL (3.5-5.2) 09/14/23 06:41 Globulin 2.7 g/dL (1.3-4.6) 09/14/23 06:41 Blood Type O Positive 09/14/23 06:41 Rho(D) Type Rh positive 09/14/23 06:41 Antibody Screen Positive 09/14/23 06:41 Antibody Identification Anti-E 09/14/23 06:41 Antigen Identification E Antigen - NEGATIVE 09/14/23 06:41 Crossmatch See Detail 09/14/23 06:41 Vitals Last Vital Signs Temp 98.1 F 09/17/23 03:12 Pulse 101 H 09/17/23 09:04 Resp 16 09/17/23 09:04 BP 133/79 09/17/23 03:12 Pulse Ox 97 09/17/23 09:04 O2 Del Method Room Air 09/17/23 09:04 Discharge Plan Discharge Patient Disposition: Xfer [facility] Condition: Stable Prescriptions: New aspirin 325 mg Tablet,Delayed Release (Dr/Ec) 325 mg PO DAILY 30 Days Qty: 0 0RF oxycodone 5 mg Tablet 2.5 - 5 mg PO Q4H PRN (Reason: Moderate Pain) 7 Days Qty: 30 0RF Continued pantoprazole [Protonix] 40 mg tablet,delayed release (DR/EC) 40 mg PO DAILY 90 Days Qty: 90 3RF diclofenac sodium [Voltaren Arthritis Pain] 1 % gel 2 g topical QID Rx Instructions: apply to single elbow, wrist or hand; for hand includes palm/fingers/back of hand meloxicam 7.5 mg tablet 7.5 mg PO DAILY Qty: 60 0RF megestrol 400 mg/10 mL (10 mL) suspension 400 mg PO DAILY cetirizine 5 mg tablet 5 mg PO DAILY PRN (Reason: Allergy Symptoms) isosorbide dinitrate 30 mg tablet 30 mg PO DAILY Rx Instructions: allow nitrate-free interval of 12-14 hrs per 24-hr period docusate sodium 100 mg capsule 100 mg PO DAILY furosemide 20 mg tablet 20 mg PO DAILY albuterol sulfate 90 mcg/actuation HFA aerosol inhaler 2 puff inhalation Q6H PRN (Reason: Allergy Symptoms) ferrous sulfate 325 mg (65 mg iron) tablet,delayed release (DR/EC) 325 mg PO DAILY fluticasone propionate 50 mcg/actuation spray,suspension 1 spray intranasal DAILY Rx Instructions: administer into each nostril amiodarone 100 mg tablet 100 mg PO DAILY levothyroxine 112 mcg capsule 112 mcg PO DAILY potassium chloride 10 mEq tablet extended release 20 meq PO DAILY ondansetron HCl 4 mg tablet 4 mg PO Q8H PRN (Reason: Nausea And Vomiting) tramadol 50 mg tablet 50 mg PO Q8H PRN (Reason: Pain) polyethylene glycol 3350 [Miralax] 17 gram Powder In Packet 17 g PO Q12H PRN (Reason: Constipation) lorazepam 0.5 mg tablet 0.5 mg PO BEDTIME multivitamin Tablet 1 tab PO DAILY Qty: 90 0RF Held amlodipine 5 mg tablet 5 mg PO DAILY Hold Instructions: recheck BP and resume as able Discharge Orders: Discharge Order (Routine); Ordered 09/17/23 Ordered By: Rosanne Fernando Referrals: Monica Sheets MD [Primary Care Provider] - 09/21/23 7:30 am Laura Harper MD [Physician] - 09/29/23 9:45 am () YARI MURPHY [Occupational Therapist] - Discharge Diet: Cardiac Discharge Activity: Increase activity as tolerated, Limit activity as instructed, Use walker/crutches as instructed and As per PT/OT instructions Patient Instructions: Aspirin (By mouth), Oxycodone, Rapid Release (By mouth), Total Knee Replacement (GEN), Joint Replacement Stoplight, Opioid Safety Activity Restrictions/Additional Instructions: Wear knee immobilizer when you are in bed, not ambulating, or sitting in a chair. You may be up in chair, and working with physical therapy on gait training, range of motion, and ambulation. Ice and elevation to right lower extremity. Discharge Attestations Time Spent in Discharge Care*: greater than 30 min Quality Metrics Clinical Quality Measures [ No reported AMI, CVA or VTE this stay] Coding Level of Care Code Acute Code for [facility] Diagnoses Valgus deformity, not elsewhere classified, right knee M21.061 Osteoarthritis of right knee M17.11 Osteoarthritis type: primary CHF (congestive heart failure) I50.32 Heart failure chronicity: chronic Heart failure type: diastolic HTN (hypertension) I10 Atrial fibrillation I48.19 Atrial fibrillation type: persistent (not longstanding) Hypotension I95.9
--- NOTE | 2023-09-17 13:19 | PC.NURSE ---
Report given to Lenny Reina LPN at [facility] in [place], [place]
[2023-09-17 14:01] VITALS: PULSE 101; RESP 16; O2SAT 97
== END 2023-09-17 13:30 | disposition skilled nursing facility (03) | DRG 470 ==
LOC: MEDSURG 11:25
PROVIDERS: Nurse Practitioner; Admitting Provider Specialist; PCP Family Medicine; Visit Provider Internal Medicine
PROC: 8E0Y0CZ Robotic Assisted Procedure of Lower Extremity, Open Approach (ICD-10-PCS; CPT 27447; principal; 2023-09-14 07:00)
DX: M17.11 Unilateral primary osteoarthritis, right knee (principal); I48.19 Other persistent atrial fibrillation; I50.32 Chronic diastolic (congestive) heart failure; M24.561 Contracture, right knee; D64.9 Anemia, unspecified; I11.0 Hypertensive heart disease with heart failure; K21.9 Gastro-esophageal reflux disease without esophagitis; E07.9 Disorder of thyroid, unspecified
CPT/HCPCS: 36415; 51702; 71045; 73560; 80048; 80053; 80503; 83735; 85025; 86850; 86870; 86900; 86902; 86920; 97110; 97116; 97161; 97167; 97530; 97535; C1776; C9290; G0378; J0131; J0690; J2405; J2704; J2795; J3370; J3490; J7030; J7040

== ENCOUNTER → 2023-09-29 09:21 | Outpatient (BNVA) | payer MEDICARE, OTHER, SELFPAY | PROVIDERS: PCP Family Medicine; Visit Provider Nurse Practitioner | DX: M17.11 Unilateral primary osteoarthritis, right knee (principal); Z96.651 Presence of right artificial knee joint | CPT/HCPCS: 73560; 73565; 99024 ==